=== PATIENT | male | born 1940 | race Caucasian/White ===

== ENCOUNTER 2016-10-25 07:06 | Day surgery (SDC) | payer OTHER ==
[2016-10-24 12:36] VITALS: BMI 31.7
[2016-10-25] MEDS ORDERED: PROPOFOL 20 ML ONE ×3 (08:01)
[2016-10-25] MEDS ORDERED: LIDOCAINE HCL/PF 2% SDV 5ML VIAL ONE (08:01)
[2016-10-25 09:01] VITALS: TEMP 97.6
[2016-10-25 09:19] VITALS: PULSE 49
[2016-10-25 09:59] VITALS: BP 145/53
--- NOTE | 2016-10-26 12:43 | PATH ---
Surgical Pathology Report Patient Name: CHUNG BUTCHER [facility]. Rec. #: [id number] /Age/Gender: 1940 (Age: 76) / M Account: [id number] Location: U-ENDOSCOPY Taken: 10/25/2016 Received: 10/25/2016 Reported: 10/26/2016 Physicians: Thomas Carlson M.D. Specimen(s) Received A: RECTAL POLYP B: SIGMOID COLON POLYP C: BX PROMINENT CECAL FOLD D: PROXIMAL TRANSVERSE COLON POLYP Clinical History History of polyps Colon polyps, diverticulosis Final Diagnosis A. 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 B. COLON, SIGMOID, POLYP, POLYPECTOMY: SPECIMEN DID NOT SURVIVE PROCESSING. C. COLON, PROMINENT CECAL FOLD, BIOPSY: COLONIC MUCOSA WITHREACTIVE LYMPHOID AGGREGATES AND FOCALLY PROMINENT SUBMUCOSAL ADIPOSE TISSUE. D. COLON, PROXIMAL TRANSVERSE, POLYP, POLYPECTOMY: FRAGMENTS OF HYPERPLASTIC-TYPE POLYP WITH FEATURES OF SESSILE SERRATED ADENOMA. Electronically Signed Yogesh Shaw M.D. Gross Description A. Received in formalin, labeled "rectal colon polyp" is a peterson, irregular portion of soft tissue measuring 0.4 cm in greatest dimension. The specimen is submitted in toto in one cassette. B. Received in formalin, labeled "sigmoid colon polyp" are 2 peterson, minute portions of tissue averaging <0.1 cm in greatest dimension. The specimens are submitted in toto in one cassette. The specimen may not survive processing. C. Received in formalin, labeled "biopsy prominent cecal fold" are 6 peterson, irregular portions of soft tissue ranging from 0.1-0.4 cm in greatest dimension. The specimens are submitted in toto in one cassette. D. Received in formalin, labeled "proximal transverse colon polyp" are 3 peterson, irregular portions of soft tissue ranging from 0.1-0.4 cm in greatest dimension. The specimens are submitted in toto in one cassette. 10/25/201610/25/2016
== END 2016-10-25 09:59 | disposition home or self-care (01) ==
LOC: JASU-ENDO 07:06
PROVIDERS: ATTEND Internal Medicine Gastroenterology
PROC: 0DBL8ZX Excision of Transverse Colon, Via Natural or Artificial Opening Endoscopic, Diagnostic (ICD-10-PCS; 2016-10-25)
PROC: 0DBN8ZX Excision of Sigmoid Colon, Via Natural or Artificial Opening Endoscopic, Diagnostic (ICD-10-PCS; 2016-10-25)
PROC: 0DBH8ZX Excision of Cecum, Via Natural or Artificial Opening Endoscopic, Diagnostic (ICD-10-PCS; 2016-10-25)
PROC: 0DBP8ZX Excision of Rectum, Via Natural or Artificial Opening Endoscopic, Diagnostic (ICD-10-PCS; principal; 2016-10-25 08:00)
DX: Z51.11 Encounter for antineoplastic chemotherapy (principal); Z86.010 Personal history of colon polyps; D12.3 Benign neoplasm of transverse colon; D12.5 Benign neoplasm of sigmoid colon; D12.0 Benign neoplasm of cecum; K62.1 Rectal polyp; K57.30 Diverticulosis of large intestine without perforation or abscess without bleeding
CPT/HCPCS: 88305-TC

== ENCOUNTER 2017-02-17 11:58 | Inpatient (IN) | payer OTHER ==
--- NOTE | 2017-02-17 12:31 | PDOC ---
History of Present Illness - General Chief Complaint: Shortness of Breath Stated Complaint: SOB Time Seen by Provider: 02/17/17 12:24 History Source: Patient Exam Limitations: No Limitations - History of Present Illness Initial Comments: 02/17/17 12:33 This is a 76-year-old man with a history of HLD, HTN, CAD (s/p stent x 5), COPD , BPH, hypothyroidism who comes to the ER with a complaint of shortness of breath Pt complaints are two fold: A.) He reports two days of cough, shortness of breath. Yesterday had subjective fevers and chills. No nausea, no vomiting. No ill contacts. No recent travel. No chest pain. No wheezing. (+) sputum production (brown). B) He also notes that it has been several months since he has noticed dizziness with exertion. he estimates that he can go approximately 1 block before he has to stop walking. He denies exertional chest pain. He is s/p recent Holter monitor, results pending to determine if he needs a holter monitor. Denies diaphoresis, nausea, palpitations. PMH: HLD, HTN, CAD (s/p stent x 5), COPD, BPH, hypothyroidism PMD: was [place], pt would like it to be Malik, has changed this on his insurance card School Examiner: Dr. Gómez PSH: rhinoplasty, cyst removal Meds: please see MAR ALL: NKDA Social: Denies tobacco use, denies drug use. Independent, lives with , ambulatory with no assistance - Review of Systems Constitutional: denies: Chills, Diaphoresis, Fever, Lethargy, Loss of Appetite, Malaise, Night Sweats, Unintentional Wgt. Loss, Weakness Eyes: denies: Blurred Vision, Double Vision, Recent Change in Vision HENT: reports: Hearing Loss. denies: Difficult Swallowing, Ear Pain, Epistaxis , Gingival Bleeding, Nasal Congestion, Throat Pain, Ringing in Ears Neck: denies: Decreased ROM, Lumps, Pain on Movement, Stiffness, Swollen Glands Cardiovascular: reports: Chest Pain, Shortness of Breath. denies: Edema, Palpitations Respiratory: reports: Cough, SOB on Exertion. denies: Hemoptysis, Orthopnea, PND, Wheezing Gastrointestinal: denies: Abdominal Pain, Constipation, Diarrhea, Dysphagia, Indigestion, Melena, Nausea, Rectal Bleeding, Vomiting Genitourinary: denies: Burning, Flank Pain, Frequency, Hematuria, Incontinence, Pain, Testicular Pain, Urgency Integumentary: denies: Rash Neurological: reports: Dizziness. denies: Change in LOC, Change in Speech, Confusion, Headache, Numbness, Unsteady Gait Endocrine: denies: Intolerance to Cold, Intolerance to Heat, Unexplained Weight Gain, Unexplained Weight Loss Hematology/Lymphatic: denies: Easily Bruised, Excessive Bleeding, Swollen Glands Psychiatric: denies: Altered Sleep Pattern, Anxiety, Depression Physical Examination GENERAL: The patient is in no acute distress, coughing during examination. HEAD: Normal with no signs of trauma. EYES: PERRLA, EOMI, sclera anicteric, conjunctiva clear. ENT: Ears normal, nares patent, oropharynx clear without exudates. Moist mucous membranes. NECK: Normal range of motion, supple without lymphadenopathy, JVD, or masses. LUNGS: Breath sounds equal, clear to auscultation bilaterally. No wheezes HEART: Regular rate and rhythm, normal S1 and S2 without murmur, rub or gallop. ABDOMEN: Soft, nontender, normoactive bowel sounds. No guarding, no rebound. No masses palpable. EXTREMITIES: Normal range of motion, no edema. No clubbing or cyanosis. No erythema, or tenderness. NEUROLOGICAL: Cranial nerves II through XII grossly intact. Normal speech. No focal neurological deficits. MUSCULOSKELETAL: Back non-tender to palpation, no CVA tenderness SKIN: Warm, Dry, normal turgor, no rashes or lesions noted. Past History - Past Medical History Allergies/Adverse Reactions: Allergies Allergy/AdvReac Type Severity Reaction Status Date / Time No Known Drug Allergies Allergy Verified 02/17/17 12:04 Home Medications: Ambulatory Orders RX: Ascorbic Acid [Vitamin C] 500 mg PO DAILY 12/25/12 RX: Aspirin Coated [Ecotrin -] 81 mg PO HS 12/25/12 RX: Atorvastatin Calcium [Lipitor] 20 mg PO HS 12/25/12 RX: Levothyroxine [Synthroid -] 200 mcg PO DAILY@0700 #30 tablet 07/11/15 Mag Carb/Al Hydrox/Alginic AC [Gaviscon Liquid] 30 ml PO PRN PRN #0 oral.susp RX: Pantoprazole Sodium 40 mg PO HS #0 tablet. 05/03/16 Multivit-Min/FA/Lycopen/Lutein [Centrum Silver Men Tablet] 1 each PO DAILY 10/24 Anemia: No Asthma: No Cancer: No Cardiac Disorders: Yes (ASHD) CVA: No COPD: Yes CHF: No Dementia: No Diabetes: No GI Disorders: Yes (GERD W/ SCHATZKI RING,, COLON POLYPS,DIVERTICULOSIS) Disorders: Yes (BPH) HTN: No Hypercholesterolemia: Yes (HYPERLIPIDEMIA) Kidney Stones: Yes Liver Disease: No Seizures: No Thyroid Disease: Yes (HYPOTHYROID) - Surgical History Abdominal Surgery: No Appendectomy: No Cardiac Surgery: No Cholecystectomy: No Lung Surgery: Yes (UPPER LUNG BIOPSY) Neurologic Surgery: No Orthopedic Surgery: No - Immunization History Immunization Up to Date: Yes - Suicide/Smoking/Psychosocial Hx Smoking History: Former smoker Have you smoked in the past 12 months: No If you are a former smoker, when did you quit?: 40 YRS Information on smoking cessation initiated: No Hx Alcohol Use: Yes (SOCIAL) Drug/Substance Use Hx: No Substance Use Type: None Hx Substance Use Treatment: No *Physical Exam - Vital Signs Last Vital Signs Temp Pulse Resp BP Pulse Ox 100.0 F H 70 20 120/56 96 02/17/17 12:00 02/17/17 12:00 02/17/17 12:00 02/17/17 12:00 02/17/17 12:00 Heart Score/ECG Review #1 ECG reviewed & interpreted by me at: 13:32 General ECG Interpretation: Sinus Rhythm, Normal Rate, Normal Intervals, No acute ischemic changes ED Treatment Course - LABORATORY CBC & Chemistry Diagram: 02/17/17 13:00 02/17/17 13:00 Medical Decision Making - Medical Decision Making 02/17/17 12:52 Differential Diagnosis: ACS, Pneumonia, Bronchitis, CHF, COPD exacerbation Will do labs Will do x ray Will re assess No wheezing, will hold on steroids and nebs 02/17/17 13:31 X-ray demonstrates congestive changes, bibasilar patchy infiltrates. In the setting of low-grade fever, cough, sputum change will treat for pneumonia. Awaiting labs. Will admit to Dr. Malik vieira 02/17/17 14:05 Laboratory Tests 02/17/17 02/17/17 02/17/17 13:00 13:00 13:05 WBC 12.9 H D Hgb 12.6 Hct 39.2 Plt Count 253 D Neutrophils % 81.6 D Lymphocytes % 6.3 L D VBG pH 7.40 POC VBG pCO2 43.1 POC VBG pO2 28.1 Mixed VBG HCO3 26.3 H BUN 12 Creatinine 1.0 D Creatine Kinase 39 Troponin I < 0.02 *DC/Admit/Observation/Transfer Diagnosis at time of Disposition: Dyspnea on exertion Pneumonia Qualifiers: Pneumonia type: due to unspecified organism Laterality: bilateral Lung location : lower lobe of lung Qualified Code(s): J18.9 - Pneumonia, unspecified organism - Discharge Dispostion Condition at time of disposition: Stable Admit: Yes
[2017-02-17 13:11] LABS: VENOUS BLOOD GAS HCO3 26.3 meq/L (19-25); VENOUS PH 7.4 (7.32-7.42)
[2017-02-17 13:14] LABS: BASOPHIL 0.2 % (0-2.0); MCH 29.5 pg (25.7-33.7); MCHC 32.2 g/dl (32.0-35.9); MEAN CELL VOLUME 91.4 fl (80-96); MEAN PLT VOLUME 6.8 fl (7.5-11.1); NEUTROPHILS 81.6 % (42.8-82.8); PLATELET COUNT 253 K/MM3 (134-434); RDW 14.5 % (11.9-15.9); WHITE BLOOD COUNT 12.9 K/mm3 (4.0-10.0)
[2017-02-17 13:40] LABS: ALBUMIN 3.1 g/dl (3.4-5.0); ANION GAP 7 (8-16); CALCIUM 8.2 mg/dL (8.5-10.1); CO2 28 mmol/L (21-32); GLUCOSE,RANDOM 136 mg/dL (74-106); SGOT/AST 17 U/L (15-37); SGPT/ALT 27 U/L (12-78); TOT PROT 6.2 g/dl (6.4-8.2)
[2017-02-17 13:42] LABS: ALK PHOS 106 U/L (45-117); CPK 39 IU/L (39-308); TROPONIN I < 0.02 ng/ml (0.00-0.05)
[2017-02-17 13:55] LABS: URINE APPEARANCE CLEAR; URINE BILIRUBIN NEGATIVE (NEGATIVE); URINE BLOOD NEGATIVE (NEGATIVE); URINE COLOR AMBER; URINE GLUCOSE (UA) NEGATIVE (NEGATIVE); URINE KETONE NEGATIVE (NEGATIVE); URINE LEUK ESTERASE NEGATIVE (NEGATIVE); URINE NITRITE NEGATIVE (NEGATIVE); URINE PROTEIN NEGATIVE (NEGATIVE); URINE UROBILINOGEN 4.0 E.U/dl mg/dL (0.2-1.0)
[2017-02-17 13:59] LABS: INR 1.48 (0.82-1.09); PROTHROMBIN TIME (PATIENT) 16.4 SEC (9.98-11.88)
[2017-02-17 14:01] LABS: ACTIVATED PTT 29.3 SECONDS (26.9-34.4)
[2017-02-17] MEDS ORDERED: CEFTRIAXONE 1 GM in DEXTROSE 5%-WATER - 50 ML IVPB ONE (14:05)
[2017-02-17] MEDS ORDERED: AZITHROMYCIN IVPB 500 MG in DEXTROSE 5%-WATER - 250 ML IVPB ONE (14:08)
[2017-02-17] MEDS ORDERED: AZITHROMYCIN IVPB 250 ML IVPB ONE (15:33)
[2017-02-17] MEDS ORDERED: CEFTRIAXONE 50 ML ONE (15:33)
[2017-02-17 16:34] LABS: CPK 43 IU/L (39-308); TROPONIN I < 0.02 ng/ml (0.00-0.05)
[2017-02-17] MEDS: D5-1/2NS+20 MEQ KCL - 1,000 ML IV SCH (20:48)
[2017-02-17 21:29] VITALS: BMI 30.6
[2017-02-17] MEDS: ASPIRIN COATED 81 MG TABLET.EC PO SCH (22:13)
[2017-02-17] MEDS: HEPARIN NA (PORCINE) 5,000 UNITS/ML 1ML VIAL SQ SCH (22:13)
[2017-02-17] MEDS: ATORVASTATIN CA 20 MG TABLET (FP) PO SCH (22:13)
[2017-02-17] MEDS: PANTOPRAZOLE 40 MG TABLET (FP) PO SCH (22:13)
[2017-02-18] MEDS: LEVOTHYROXINE NA 200 MCG TABLET PO SCH (06:48)
[2017-02-18 07:22] LABS: BASOPHIL 0.8 % (0-2.0); EOSINOPHIL 8.5 % (0-4.5); MCH 29.8 pg (25.7-33.7); MCHC 32.9 g/dl (32.0-35.9); MEAN CELL VOLUME 90.4 fl (80-96); MEAN PLT VOLUME 7.5 fl (7.5-11.1); NEUTROPHILS 71.7 % (42.8-82.8); PLATELET COUNT 229 K/MM3 (134-434); RDW 14.7 % (11.9-15.9); WHITE BLOOD COUNT 12.7 K/mm3 (4.0-10.0)
[2017-02-18] MEDS ORDERED: PT OWN MED DRAWER 7, Y5N ONE ×3 (07:32→21:28)
[2017-02-18 07:49] LABS: ALBUMIN 2.7 g/dl (3.4-5.0); ANION GAP 6 (8-16); CALCIUM 7.9 mg/dL (8.5-10.1); CO2 27 mmol/L (21-32); GLUCOSE,RANDOM 108 mg/dL (74-106)
[2017-02-18 07:55] LABS: ALK PHOS 94 U/L (45-117); CHOLESTEROL 106 mg/dL (50-200); CPK 53 IU/L (39-308); CREATININE 0.8 mg/dL (0.7-1.3); SGOT/AST 13 U/L (15-37); SGPT/ALT 22 U/L (12-78); TOT PROT 5.7 g/dl (6.4-8.2); TROPONIN I < 0.02 ng/ml (0.00-0.05)
--- NOTE | 2017-02-18 08:40 | EKG ---
Test Reason : Blood Pressure : / mmHG Vent. Rate : 065 BPM Atrial Rate : 065 BPM P-R Int : 182 ms QRS Dur : 092 ms QT Int : 388 ms P-R-T Axes : -09 029 046 degrees QTc Int : 403 ms NORMAL SINUS RHYTHM NORMAL ECG Confirmed by MD PRASHANTH, GRACIA ([id number]) on 02/18/2017 8:39:57 AM Referred By: Confirmed By:GRACIA ALFORD MD
[2017-02-18] MEDS ORDERED: cefTRIAXone SODIUM 1 GM VIAL ONE ×2 (09:47→16:47)
[2017-02-18] MEDS ORDERED: DEXTROSE 5%-WATER - 50 ML IVPB ONE (09:47)
[2017-02-18] MEDS: HEPARIN NA (PORCINE) 5,000 UNITS/ML 1ML VIAL SQ SCH ×2 (09:53→21:39)
[2017-02-18] MEDS: ACETAMINOPHEN 325 MG TABLET (FP) PO PRN ×2 (09:54→21:38)
[2017-02-18] MEDS ORDERED: FLU VACCINE QUAD 60 MCG/0.5 ML (MDV 17-18) IM ONE (10:00)
[2017-02-18] MEDS ORDERED: CEFTRIAXONE 1 GM in DEXTROSE 5%-WATER - 50 ML IVPB SCH (10:00)
--- NOTE | 2017-02-18 10:47 | HP ---
Admitting History and Physical - Admission History of Present Illness: This is a 76-year-old man with a history of HLD, HTN, CAD (s/p stent x 5), COPD , BPH, hypothyroidism who comes to the ER with a complaint of shortness of breath Pt complaints are two fold: A.) He reports two days of cough, shortness of breath. Yesterday had subjective fevers and chills. No nausea, no vomiting. No ill contacts. No recent travel. No chest pain. No wheezing. (+) sputum production (brown). B) He also notes that it has been several months since he has noticed dizziness with exertion. he estimates that he can go approximately 1 block before he has to stop walking. He denies exertional chest pain. He is s/p recent Holter monitor, results pending to determine if he needs a holter monitor. Denies diaphoresis, nausea, palpitations. - Past Medical History Cardiovascular: Yes: CAD, HTN, Hyperlipdemia Pulmonary: Yes: Sleep Apnea Gastrointestinal: Yes: GERD Renal/: Yes: BPH Endocrine: Yes: Hypothyroidism - Past Surgical History Past Surgical History: Yes: Stent - Smoking History Smoking history: Former smoker Have you smoked in the past 12 months: No If you are a former smoker, when did you quit?: 40 YRS - Alcohol/Substance Use Hx Alcohol Use: Yes (SOCIAL) History of Substance Use: reports: None - Social History ADL: Independent History of Recent Travel: Yes Home Medications - Allergies Allergies/Adverse Reactions: Allergies Allergy/AdvReac Type Severity Reaction Status Date / Time No Known Drug Allergies Allergy Verified 02/17/17 12:04 - Home Medications Home Medications: Ambulatory Orders Ascorbic Acid [Vitamin C] 500 mg PO DAILY 12/25/12 Aspirin Coated [Ecotrin -] 81 mg PO HS 12/25/12 Atorvastatin Calcium [Lipitor] 20 mg PO HS 12/25/12 Levothyroxine [Synthroid -] 200 mcg PO DAILY@0700 #30 tablet 07/11/15 Mag Carb/Al Hydrox/Alginic AC [Gaviscon Liquid] 30 ml PO PRN PRN #0 oral.susp Pantoprazole Sodium 40 mg PO HS #0 tablet. 05/03/16 Multivit-Min/FA/Lycopen/Lutein [Centrum Silver Men Tablet] 1 each PO DAILY 10/24 Review of Systems - Review of Systems Constitutional: reports: Weakness Cardiovascular: reports: Shortness of Breath, Other (RT AXILLARY PAIN). denies : Chest Pain, Edema, Palpitations Respiratory: reports: Cough, SOB, SOB on Exertion Gastrointestinal: denies: Abdominal Pain Genitourinary: reports: No Symptoms Physical Examination Vital Signs: Vital Signs Temperature 99.3 F 02/18/17 06:00 Pulse Rate 89 02/18/17 06:00 Respiratory Rate 20 02/18/17 06:00 Blood Pressure 117/51 02/18/17 06:00 O2 Sat by Pulse Oximetry (%) 92 L 02/17/17 20:30 Cardiovascular: Yes: S1, S2 Respiratory: Yes: Diminished, Rales Gastrointestinal: Yes: Normal Bowel Sounds, Soft. No: Tenderness Edema: No Labs: CBC, BMP 02/18/17 06:00 02/18/17 06:00 Imaging - Results Cat Scan: Report Reviewed Problem List - Problems (1) Pneumonia Assessment/Plan: NEW FINDING ON CT PULM AND ID CONSULT IV ABX NEBS Code(s): J18.9 - PNEUMONIA, UNSPECIFIED ORGANISM Qualifiers: Pneumonia type: due to unspecified organism Laterality: bilateral Lung location: lower lobe of lung Qualified Code(s): J18.9 - Pneumonia, unspecified organism (2) CAD (coronary artery disease) Assessment/Plan: EKG NO CP MONITOR ON TELE Code(s): I25.10 - ATHSCL HEART DISEASE OF [place] CORONARY ARTERY W/O ANG PCTRS (3) COPD (chronic obstructive pulmonary disease) Assessment/Plan: NEBS Code(s): J44.9 - CHRONIC OBSTRUCTIVE PULMONARY DISEASE, UNSPECIFIED (4) Pulmonary nodule Assessment/Plan: MONITOR PER PULM Code(s): R91.1 - SOLITARY PULMONARY NODULE
[2017-02-18] MEDS: ALBUTEROL SO4 2.5/IPRATROPIUM 0.5 INH SOL 3 ML VIAL.NEB. NEB SCH ×3 (11:07→23:18)
--- NOTE | 2017-02-18 12:18 | CON.PULM ---
Consult Consult Specialty:: PULMONARY Referred by:: Dr. Aviles Reason for Consultation:: pneumonia - History of Present Illness Chief Complaint: cough History of Present Illness: 76yo male with h/o HTN, hyperlipidemia, COPD, BPH, hypothyroidism, CAD s/p stents, former smoker who presents with worsening cough and shortness of breath x 2 days. He denies any chest pain or palpitations. + cough mostly nonproductive but sometimes with brown sputum. Reports subjective fevers, chills. No sick contacts or recent travel. No wheezing. Has not been hospitalized or on antibiotics this year. Being followed as outpt for lung nodule with PET reportedly negative. - History Source History Provided By: Patient, Medical Record Limitations to Obtaining History: No Limitations - Past Medical History Cardio/Vascular: Yes: CAD, HTN, Hyperlipdemia Pulmonary: Yes: Sleep Apnea Gastrointestinal: Yes: GERD Renal/: Yes: BPH Endocrine: Yes: Hypothyroidism - Past Surgical History Past Surgical History: Yes: Stent - Alcohol/Substance Use Hx Alcohol Use: Yes (SOCIAL) History of Substance Use: reports: None - Smoking History Smoking history: Former smoker Have you smoked in the past 12 months: No If you are a former smoker, when did you quit?: 40 YRS - Social History ADL: Independent History of Recent Travel: Yes Home Medications - Allergies Allergies/Adverse Reactions: Allergies Allergy/AdvReac Type Severity Reaction Status Date / Time No Known Drug Allergies Allergy Verified 02/17/17 12:04 - Home Medications Home Medications: Ambulatory Orders Ascorbic Acid [Vitamin C] 500 mg PO DAILY 12/25/12 Aspirin Coated [Ecotrin -] 81 mg PO HS 12/25/12 Atorvastatin Calcium [Lipitor] 20 mg PO HS 12/25/12 Levothyroxine [Synthroid -] 200 mcg PO DAILY@0700 #30 tablet 07/11/15 Mag Carb/Al Hydrox/Alginic AC [Gaviscon Liquid] 30 ml PO PRN PRN #0 oral.susp Pantoprazole Sodium 40 mg PO HS #0 tablet. 05/03/16 Multivit-Min/FA/Lycopen/Lutein [Centrum Silver Men Tablet] 1 each PO DAILY 10/24 Review of Systems - Review of Systems Constitutional: reports: Chills, Fever, Weakness Eyes: denies: Recent Change in Vision HENT: denies: Nasal Congestion, Throat Pain Neck: denies: Stiffness, Tenderness Cardiovascular: reports: Shortness of Breath. denies: Chest Pain, Palpitations Respiratory: reports: Cough, Exercise Intolerance, SOB, SOB on Exertion. denies : Hemoptysis, Wheezing Gastrointestinal: denies: Abdominal Pain, Nausea, Vomiting Genitourinary: denies: Dysuria, Hematuria Neurological: denies: Dizziness, Headache Endocrine: denies: Unexplained Weight Loss Physical Exam Vital Sings: Vital Signs Temperature 98.8 F 02/18/17 10:00 Pulse Rate 57 L 02/18/17 10:00 Respiratory Rate 20 02/18/17 10:00 Blood Pressure 95/52 02/18/17 10:00 O2 Sat by Pulse Oximetry (%) 92 L 02/17/17 20:30 Constitutional: Yes: Calm Eyes: Yes: Conjunctiva Clear, EOM Intact HENT: Yes: Atraumatic, Normocephalic, Tonsillar Exudate Neck: Yes: Trachea Midline Cardiovascular: Yes: Regular Rate and Rhythm Respiratory: Yes: Diminished (decreased breath sounds at the bases) ...Clubbing: No Gastrointestinal: Yes: Normal Bowel Sounds, Soft. No: Tenderness Edema: No Neurological: Yes: Alert, Oriented Labs: CBC, BMP 02/18/17 06:00 02/18/17 06:00 Imaging - Results Chest X-ray: Report Reviewed, Image Reviewed Cat Scan: Report Reviewed, Image Reviewed (RUL focal infiltrate) Problem List - Problems (1) Pneumonia Code(s): J18.9 - PNEUMONIA, UNSPECIFIED ORGANISM Qualifiers: Pneumonia type: due to unspecified organism Laterality: bilateral Lung location: lower lobe of lung Qualified Code(s): J18.9 - Pneumonia, unspecified organism (2) COPD (chronic obstructive pulmonary disease) Code(s): J44.9 - CHRONIC OBSTRUCTIVE PULMONARY DISEASE, UNSPECIFIED (3) CAD (coronary artery disease) Code(s): I25.10 - ATHSCL HEART DISEASE OF [place] CORONARY ARTERY W/O ANG PCTRS (4) BPH (benign prostatic hypertrophy) Code(s): N40.0 - BENIGN PROSTATIC HYPERPLASIA WITHOUT LOWER URINRY TRACT SYMP Qualifiers: Lower urinary tract symptom presence: symptoms absent Qualified Code(s) : N40.0 - Benign prostatic hyperplasia without lower urinary tract symptoms (5) Hyperlipidemia Code(s): E78.5 - HYPERLIPIDEMIA, UNSPECIFIED Qualifiers: Hyperlipidemia type: unspecified Qualified Code(s): E78.5 - Hyperlipidemia, unspecified (6) Hypothyroidism Code(s): E03.9 - HYPOTHYROIDISM, UNSPECIFIED Qualifiers: Hypothyroidism type: unspecified Qualified Code(s): E03.9 - Hypothyroidism, unspecified Assessment/Plan Pneumonia COPD HTN CAD s/p stents Hypothyroidism Hyperlipidemia - agree with antibiotic coverage for community acquired pneumonia - f/u cultures - send urine antigens - inhaled bronchodilators - takes Breo at home, can give Symbicort while inpatient - can defer systemic steroids at this time - O2 to keep SpO2>90% - will need outpt f/u of chest imaging in 6-8 weeks to ensure resolution of focal infiltrate, mass like infiltrate not seen on CT chest in August 2016 - DVT prophylaxis Thank you for this consult Robert Currie MD
[2017-02-18] MEDS: BUDESONIDE/FORMETEROL FUMARATE 160/4.5 mcg INHALER IH SCH ×2 (15:58→21:45)
[2017-02-18] MEDS ORDERED: CEFTRIAXONE 1 GM in DEXTROSE 5%-WATER 100 ML IVPB ONE (16:08)
--- NOTE | 2017-02-18 16:13 | PN ---
Progress Note (short form) - Note Progress Note: ID Consult dictated Mass-like RUL infiltrate High grade fever Await cultures Empiric ceftriaxone/ zithromax
[2017-02-18] MEDS ORDERED: AZITHROMYCIN IVPB 500 MG in DEXTROSE 5%-WATER - 250 ML IVPB SCH ×2 (16:15→18:25)
[2017-02-18] MEDS ORDERED: DEXTROSE 5%-WATER 100 ML IVPB ONE (16:47)
[2017-02-18] MEDS ORDERED: AZITHROMYCIN IVPB 250 ML IVPB SCH (16:58)
--- NOTE | 2017-02-18 17:01 | CONS ---
DATE OF CONSULTATION: DATE OF DICTATION: 02/18/2017 The patient is a 76-year-old male evaluated for right upper lobe pneumonia. He presented to the hospital with worsening shortness of breath, cough, subjective fever and chills. The patient's CAT scan of the chest was noted to have a mass-like infiltrate involving the right upper lobe. He reports occasional cough productive of whitish sputum. He denies any hemoptysis. He denies chest pain or shortness of breath. He denies any ill contacts or recent travel. The patient is a former smoker, stopping approximately 40 years ago. Cultures were obtained. He was empirically treated with Zithromax and ceftriaxone. Past medical history positive for hypertension, hyperlipidemia, coronary artery disease, COPD, BPH, hypothyroidism. PAST SURGICAL HISTORY: Status post coronary artery stent and rhinoplasty. No known allergies. MEDICATIONS: Vitamin C, Ecotrin, Lipitor, Synthroid, Protonix. SOCIAL HISTORY: Former smoker, stopped 40 years ago. Lives at home with his . No recent hospitalizations. Denies history of alcohol abuse. SYSTEMS REVIEW: Neurologic: No loss of consciousness, seizure activity, or focal weakness. Cardiac: Negative chest pain or palpitations. Respiratory: As per HPI. Gastrointestinal: Negative vomiting or diarrhea. Genitourinary: Negative for urinary tract infection. LABORATORY DATA: White count 12.7, hematocrit 35.9, platelet count 229. BUN 12, creatinine 0.8. CAT scan shows a dense right upper lobe infiltrate, mass-like quality, with evidence of chronic lung disease bilaterally. PHYSICAL EXAMINATION: General: He is awake and alert, he is ambulatory, he is in no acute distress. Vital Signs: Temperature 98. Blood pressure 110/67. Pulse 53, regular. Respirations 20 per minute. Eyes: Sclerae anicteric. Heart Sounds: S1, S2. Lungs: Decreased breath sounds bilaterally. Abdomen: Soft. No tenderness elicited. No mass, rebound or rigidity. Extremities: Negative for edema. IMPRESSION: 1. Mass-like right upper lobe infiltrate. 2. High-grade fever. 3. Exacerbation of chronic obstructive pulmonary disease. Await cultures. Obtain sputum culture, urine Legionella, and pneumococcal antigen. Empiric antibiotic coverage for suspected community-acquired pathogens with Zithromax and ceftriaxone. May require bronchoscopy to rule out endobronchial lesion. Will follow. Thank you for the kind referral. PATRICIA TRINIDAD M.D. OLIVIA/[id number]
[2017-02-18] MEDS: D5-1/2NS+20 MEQ KCL - 1,000 ML IV SCH (18:59)
[2017-02-18] MEDS: ATORVASTATIN CA 20 MG TABLET (FP) PO SCH (21:39)
[2017-02-18] MEDS: ASPIRIN COATED 81 MG TABLET.EC PO SCH (21:39)
[2017-02-18] MEDS: PANTOPRAZOLE 40 MG TABLET (FP) PO SCH (21:39)
[2017-02-19] MEDS ORDERED: PT OWN MED DRAWER 7, Y5N ONE ×3 (05:55→11:09)
[2017-02-19] MEDS: D5-1/2NS+20 MEQ KCL - 1,000 ML IV SCH (06:15)
[2017-02-19] MEDS: LEVOTHYROXINE NA 200 MCG TABLET PO SCH (06:15)
[2017-02-19] MEDS: ALBUTEROL SO4 2.5/IPRATROPIUM 0.5 INH SOL 3 ML VIAL.NEB. NEB SCH ×4 (06:30→23:23)
--- NOTE | 2017-02-19 08:43 | PN ---
Progress Note (short form) - Note Progress Note: feels much better still some cough with right sided pain but improved Vital Signs Period Temp Pulse Resp BP Sys/Sheldon Pulse Ox Last 24 Hr 97.4 F-98.8 F 53-67 20-20 95-135/51-72 92-93 cor-rrr lungs clear abd soft,nt ext no edema CBC, BMP 02/18/17 06:00 02/18/17 06:00 Microbiology 02/18/17 13:30 Urine For Antigen Detection Legionella Antigen - Final 02/18/17 13:30 Urine For Antigen Detection Streptococcus pneumoniae Antigen (M - Final 02/17/17 13:20 Blood - Peripheral Venous Blood Culture - Preliminary NO GROWTH OBTAINED AFTER 24 HOURS, INCUBATION TO CONTINUE FOR 4 DAYS. 02/17/17 13:00 Blood - Peripheral Venous Blood Culture - Preliminary NO GROWTH OBTAINED AFTER 24 HOURS, INCUBATION TO CONTINUE FOR 4 DAYS. 02/17/17 12:40 Urine - Urine Clean Catch Urine Culture - Final NO GROWTH OBTAINED Current Medications Acetaminophen (Tylenol -) 650 mg PO Q4H PRN PRN Reason: FEVER OR PAIN Last Admin: 02/18/17 21:38 Dose: 650 mg Albuterol/Ipratropium (Duoneb -) 1 amp NEB QIDR [facility] Last Admin: 02/19/17 06:30 Dose: 1 amp Aspirin (Ecotrin -) 81 mg PO HS [facility] Last Admin: 02/18/17 21:39 Dose: 81 mg Atorvastatin Calcium (Lipitor -) 20 mg PO HS [facility] Last Admin: 02/18/17 21:39 Dose: 20 mg Budesonide/Formoterol Fumarate (Symbicort 160/4.5mcg -) 2 puff IH BID [facility] Last Admin: 02/18/17 21:45 Dose: 2 puff Heparin Sodium (Porcine) (Heparin -) 5,000 unit SQ BID JAYJAY Last Admin: 02/18/17 21:39 Dose: 5,000 unit Potassium Chloride/Dextrose/Sod Cl (D5-1/2ns+20 Meq Kcl -) 1,000 mls @ 42 mls/ hr IV ASDIR [facility] Last Admin: 02/19/17 06:15 Dose: 42 mls/hr Ceftriaxone Sodium 2 gm/ (Dextrose) 100 mls @ 200 mls/hr IVPB DAILY [facility] Azithromycin 500 mg/ Dextrose 250 mls @ 250 mls/hr IVPB DAILY JAYJAY Levothyroxine Sodium (Synthroid -) 200 mcg PO DAILY@0700 JAYJAY Last Admin: 02/19/17 06:15 Dose: 200 mcg Pantoprazole Sodium (Protonix -) 40 mg PO HS JAYJAY Last Admin: 02/18/17 21:39 Dose: 40 mg a/p CAP- right lung, fevers resolved day #3 rocephin/zithromax consider change to po augmentin when ready for discharge to complete total 10 days add probiotics COPD- management per pulmonary
[2017-02-19] MEDS ORDERED: DEXTROSE 5%-WATER 100 ML IVPB ONE (09:40)
[2017-02-19] MEDS ORDERED: CEFTRIAXONE 2 GM in DEXTROSE 5%-WATER 100 ML IVPB SCH (10:00)
--- NOTE | 2017-02-19 10:39 | PN ---
Progress Note, Physician History of Present Illness: PULMONARY ALERT,FEELING BETTER,LESS DYSPNEIC,LESS COUGH - Current Medication List Current Medications: Active Medications Acetaminophen (Tylenol -) 650 mg PO Q4H PRN PRN Reason: FEVER OR PAIN Last Admin: 02/18/17 21:38 Dose: 650 mg Albuterol/Ipratropium (Duoneb -) 1 amp NEB QIDR [facility] Last Admin: 02/19/17 06:30 Dose: 1 amp Aspirin (Ecotrin -) 81 mg PO [facility] Last Admin: 02/18/17 21:39 Dose: 81 mg Atorvastatin Calcium (Lipitor -) 20 mg PO [facility] Last Admin: 02/18/17 21:39 Dose: 20 mg Budesonide/Formoterol Fumarate (Symbicort 160/4.5mcg -) 2 puff IH BID [facility] Last Admin: 02/18/17 21:45 Dose: 2 puff Heparin Sodium (Porcine) (Heparin -) 5,000 unit SQ BID [facility] Last Admin: 02/18/17 21:39 Dose: 5,000 unit Potassium Chloride/Dextrose/Sod Cl (D5-1/2ns+20 Meq Kcl -) 1,000 mls @ 42 mls/ hr IV ASDIR [facility] Last Admin: 02/19/17 06:15 Dose: 42 mls/hr Ceftriaxone Sodium 2 gm/ (Dextrose) 100 mls @ 200 mls/hr IVPB DAILY [facility] Azithromycin 500 mg/ Dextrose 250 mls @ 250 mls/hr IVPB DAILY [facility] Lactobacillus Acidophilus (Bacid -) 1 tab PO BID [facility] Levothyroxine Sodium (Synthroid -) 200 mcg PO DAILY@0700 [facility] Last Admin: 02/19/17 06:15 Dose: 200 mcg Pantoprazole Sodium (Protonix -) 40 mg PO [facility] Last Admin: 02/18/17 21:39 Dose: 40 mg - Objective Vital Signs: Vital Signs Temperature 98.2 F 02/19/17 06:05 Pulse Rate 63 02/19/17 06:05 Respiratory Rate 20 02/19/17 06:05 Blood Pressure 135/72 02/19/17 06:05 O2 Sat by Pulse Oximetry (%) 92 L 02/18/17 21:00 Constitutional: Yes: Well Nourished, Calm Eyes: Yes: WNL HENT: Yes: WNL Neck: Yes: WNL Cardiovascular: Yes: Regular Rate and Rhythm, S1, S2 Respiratory: Yes: Rales (FEW CRACKLES) Gastrointestinal: Yes: Normal Bowel Sounds, Soft Extremities: Yes: WNL Edema: No Labs: Assessment/Plan Problem List - Problems (1) Pneumonia Code(s): J18.9 - PNEUMONIA, UNSPECIFIED ORGANISM Qualifiers: Pneumonia type: due to unspecified organism Laterality: bilateral Lung location: lower lobe of lung Qualified Code(s): J18.9 - Pneumonia, unspecified organism (2) COPD (chronic obstructive pulmonary disease) Code(s): J44.9 - CHRONIC OBSTRUCTIVE PULMONARY DISEASE, UNSPECIFIED (3) CAD (coronary artery disease) Code(s): I25.10 - ATHSCL HEART DISEASE OF [place] CORONARY ARTERY W/O ANG PCTRS (4) BPH (benign prostatic hypertrophy) Code(s): N40.0 - BENIGN PROSTATIC HYPERPLASIA WITHOUT LOWER URINRY TRACT SYMP Qualifiers: Lower urinary tract symptom presence: symptoms absent Qualified Code(s) : N40.0 - Benign prostatic hyperplasia without lower urinary tract symptoms (5) Hyperlipidemia Code(s): E78.5 - HYPERLIPIDEMIA, UNSPECIFIED Qualifiers: Hyperlipidemia type: unspecified Qualified Code(s): E78.5 - Hyperlipidemia, unspecified (6) Hypothyroidism Code(s): E03.9 - HYPOTHYROIDISM, UNSPECIFIED Qualifiers: Hypothyroidism type: unspecified Qualified Code(s): E03.9 - Hypothyroidism, unspecified Assessment/Plan Pneumonia COPD HTN CAD s/p stents Hypothyroidism Hyperlipidemia - antibiotic coverage for community acquired pneumonia - inhaled bronchodilators - takes Breo at home, can give Symbicort while inpatient - can defer systemic steroids at this time - O2 to keep SpO2>90% - will need outpt f/u of chest imaging in 6-8 weeks to ensure resolution of focal infiltrate, mass like infiltrate not seen on CT chest in August 2016 - DVT prophylaxis DR HENRY
[2017-02-19] MEDS: HEPARIN NA (PORCINE) 5,000 UNITS/ML 1ML VIAL SQ SCH ×2 (11:10→21:45)
[2017-02-19] MEDS: BUDESONIDE/FORMETEROL FUMARATE 160/4.5 mcg INHALER IH SCH ×2 (11:11→21:46)
[2017-02-19] MEDS: LACTOBACILLUS ACIDOPHILUS 1 EACH TAB (FP) PO SCH ×2 (11:11→21:45)
--- NOTE | 2017-02-19 11:24 | EKG ---
Test Reason : Blood Pressure : / mmHG Vent. Rate : 055 BPM Atrial Rate : 055 BPM P-R Int : 206 ms QRS Dur : 102 ms QT Int : 432 ms P-R-T Axes : 012 044 021 degrees QTc Int : 413 ms SINUS BRADYCARDIA OTHERWISE NORMAL ECG WHEN COMPARED WITH ECG OF 17-FEB-2017 13:23, NO SIGNIFICANT CHANGE WAS FOUND Confirmed by LOS VERGARA MD ([id number]) on 02/19/2017 11:24:00 AM Referred By: EULA HUANG Confirmed By:LOS VERGARA MD
--- NOTE | 2017-02-19 16:36 | PN ---
Progress Note, Physician Chief Complaint: AWAKE WITH FAMILY BEDSIDE FEELING BETTER - Current Medication List Current Medications: Active Medications Acetaminophen (Tylenol -) 650 mg PO Q4H PRN PRN Reason: FEVER OR PAIN Last Admin: 02/18/17 21:38 Dose: 650 mg Albuterol/Ipratropium (Duoneb -) 1 amp NEB QIDR [facility] Last Admin: 02/19/17 11:07 Dose: 1 amp Aspirin (Ecotrin -) 81 mg PO HS [facility] Last Admin: 02/18/17 21:39 Dose: 81 mg Atorvastatin Calcium (Lipitor -) 20 mg PO HS [facility] Last Admin: 02/18/17 21:39 Dose: 20 mg Budesonide/Formoterol Fumarate (Symbicort 160/4.5mcg -) 2 puff IH BID [facility] Last Admin: 02/19/17 11:11 Dose: 2 puff Heparin Sodium (Porcine) (Heparin -) 5,000 unit SQ BID [facility] Last Admin: 02/19/17 11:10 Dose: 5,000 unit Potassium Chloride/Dextrose/Sod Cl (D5-1/2ns+20 Meq Kcl -) 1,000 mls @ 42 mls/ hr IV ASDIR [facility] Last Admin: 02/19/17 06:15 Dose: 42 mls/hr Ceftriaxone Sodium 2 gm/ (Dextrose) 100 mls @ 200 mls/hr IVPB DAILY [facility] Last Admin: 02/19/17 11:11 Dose: 200 mls/hr Azithromycin 500 mg/ Dextrose 250 mls @ 250 mls/hr IVPB DAILY [facility] Last Admin: 02/19/17 14:25 Dose: 250 mls/hr Lactobacillus Acidophilus (Bacid -) 1 tab PO BID [facility] Last Admin: 02/19/17 11:11 Dose: 1 tab Levothyroxine Sodium (Synthroid -) 200 mcg PO DAILY@0700 [facility] Last Admin: 02/19/17 06:15 Dose: 200 mcg Pantoprazole Sodium (Protonix -) 40 mg PO HS [facility] Last Admin: 02/18/17 21:39 Dose: 40 mg - Objective Vital Signs: Vital Signs Temperature 97.7 F 02/19/17 14:05 Pulse Rate 62 02/19/17 14:05 Respiratory Rate 20 02/19/17 14:05 Blood Pressure 146/66 02/19/17 14:05 O2 Sat by Pulse Oximetry (%) 94 L 02/19/17 10:25 Constitutional: Yes: No Distress Eyes: Yes: WNL HENT: Yes: WNL Neck: Yes: WNL Cardiovascular: Yes: WNL Respiratory: Yes: WNL Gastrointestinal: Yes: WNL Genitourinary: Yes: WNL Musculoskeletal: Yes: WNL Extremities: Yes: WNL Edema: No Peripheral Pulses WNL: Yes Integumentary: Yes: WNL Wound/Incision: Yes: Clean/Dry Neurological: Yes: WNL ...Motor Strength: WNL Psychiatric: Yes: WNL Labs: CBC, BMP 02/18/17 06:00 02/18/17 06:00 INR, PTT INR 1.48 (0.82-1.09) H D 02/17/17 13:00 Problem List - Problems (1) CAD (coronary artery disease) Code(s): I25.10 - ATHSCL HEART DISEASE OF [place] CORONARY ARTERY W/O ANG PCTRS Qualifiers: Coronary Disease-Associated Artery/Lesion type: unspecified vessel or lesion type [place] vs. transplanted heart: unspecified whether [place] or transplanted heart Associated angina: with unspecified angina Qualified Code(s): I25.119 - Atherosclerotic heart disease of [place] coronary artery with unspecified angina pectoris (2) COPD (chronic obstructive pulmonary disease) Code(s): J44.9 - CHRONIC OBSTRUCTIVE PULMONARY DISEASE, UNSPECIFIED Qualifiers : COPD type: emphysema (3) Exertional dyspnea Code(s): R06.09 - OTHER FORMS OF DYSPNEA (4) Pneumonia Code(s): J18.9 - PNEUMONIA, UNSPECIFIED ORGANISM Qualifiers: Pneumonia type: due to unspecified organism Laterality: bilateral Lung location: lower lobe of lung Qualified Code(s): J18.9 - Pneumonia, unspecified organism (5) Pulmonary nodule Code(s): R91.1 - SOLITARY PULMONARY NODULE (6) BPH (benign prostatic hypertrophy) Code(s): N40.0 - BENIGN PROSTATIC HYPERPLASIA WITHOUT LOWER URINRY TRACT SYMP Qualifiers: Lower urinary tract symptom presence: symptoms absent Qualified Code(s) : N40.0 - Benign prostatic hyperplasia without lower urinary tract symptoms (7) Hyperlipidemia Code(s): E78.5 - HYPERLIPIDEMIA, UNSPECIFIED Qualifiers: Hyperlipidemia type: unspecified Qualified Code(s): E78.5 - Hyperlipidemia, unspecified Assessment/Plan IV ABX NEBS STEROIDS OOB TO CHAIR DVT PROPHYLAXIS
[2017-02-19] MEDS: PANTOPRAZOLE 40 MG TABLET (FP) PO SCH (21:45)
[2017-02-19] MEDS: ASPIRIN COATED 81 MG TABLET.EC PO SCH (21:45)
[2017-02-19] MEDS: ATORVASTATIN CA 20 MG TABLET (FP) PO SCH (21:45)
[2017-02-20] MEDS: ALBUTEROL SO4 2.5/IPRATROPIUM 0.5 INH SOL 3 ML VIAL.NEB. NEB SCH (06:54)
[2017-02-20] MEDS ORDERED: LEVOTHYROXINE NA 100 MCG TABLET (FP) PO SCH (07:00)
--- NOTE | 2017-02-20 07:26 | DS ---
Physical Examination Vital Signs: Vital Signs Temperature 98 F 02/20/17 05:44 Pulse Rate 64 02/20/17 05:44 Respiratory Rate 20 02/20/17 05:44 Blood Pressure 106/59 02/20/17 05:44 O2 Sat by Pulse Oximetry (%) 94 L 02/19/17 21:00 Constitutional: Yes: No Distress Eyes: Yes: WNL HENT: Yes: WNL Neck: Yes: WNL Cardiovascular: Yes: WNL Respiratory: Yes: WNL Gastrointestinal: Yes: WNL Renal/: Yes: WNL Musculoskeletal: Yes: WNL Extremities: Yes: WNL Edema: No Peripheral Pulses WNL: Yes Integumentary: Yes: WNL Wound/Incision: Yes: Clean/Dry Neurological: Yes: WNL ...Motor Strength: WNL Psychiatric: Yes: WNL Labs: CBC, BMP 02/18/17 06:00 02/18/17 06:00 Discharge Summary Reason For Visit: DYSPNEA ON EXERTION, PNEUMONIA Current Active Problems CAD (coronary artery disease) (Acute) COPD (chronic obstructive pulmonary disease) (Acute) Exertional dyspnea (Acute) Pneumonia (Acute) Pulmonary nodule (Acute) Procedures: Principal: ct chest Hospital Course: admitted resp distress, treated with iv abx and iv steroids, improved Condition: Improved - Instructions Diet, Activity, Other Instructions: follow up ct chest in [address] mckinnon [id number] in 1-2 weeks low salt low fat diet Referrals: Rachael Mckinnon MD [Primary Care Provider] - Disposition: HOME - Home Medications Comprehensive Discharge Medication List: Ambulatory Orders Ascorbic Acid [Vitamin C] 500 mg PO DAILY 12/25/12 Aspirin Coated [Ecotrin -] 81 mg PO HS 12/25/12 Atorvastatin Calcium [Lipitor] 20 mg PO HS 12/25/12 Levothyroxine [Synthroid -] 200 mcg PO DAILY@0700 #30 tablet 07/11/15 Mag Carb/Al Hydrox/Alginic AC [Gaviscon Liquid] 30 ml PO PRN PRN #0 oral.susp Pantoprazole Sodium 40 mg PO HS #0 tablet. 05/03/16 Multivit-Min/FA/Lycopen/Lutein [Centrum Silver Men Tablet] 1 each PO DAILY 10/24 Acetaminophen [Tylenol .Regular Strength -] 650 mg PO Q4H PRN #0 tablet Amox-Tr/K Cl [Augmentin 500-125mg Tablet -] 1 tab PO BID@0800,1730 #14 tablet Budesonide/Formeterol Fumarate [SYMBICORT 160/4.5mcg -] 2 puff IH BID #1 inhaler 02/20/17 Lactobacillus Acidophilus [Bacid -] 1 tab PO BID #60 tab 02/20/17
[2017-02-20] MEDS ORDERED: AMOX TR/POT CLAV 500MG/125MG TABLETS (FP) PO SCH (08:00)
[2017-02-20] MEDS: LACTOBACILLUS ACIDOPHILUS 1 EACH TAB (FP) PO SCH (08:32)
[2017-02-20 09:15] VITALS: BP 127/56; PULSE 83; TEMP 98.6
== END 2017-02-20 09:25 | disposition home or self-care (01) | DRG 190 ==
LOC: JER 11:58 → JERBED 14:15 → J4W 20:03
PROVIDERS: ADMIT Family Medicine; ATTEND Family Medicine
DX: J44.0 Chronic obstructive pulmonary disease with (acute) lower respiratory infection (principal); J18.9 Pneumonia, unspecified organism; E78.5 Hyperlipidemia, unspecified; I10 Essential (primary) hypertension; I25.10 Atherosclerotic heart disease of native coronary artery without angina pectoris; E03.9 Hypothyroidism, unspecified; N40.0 Benign prostatic hyperplasia without lower urinary tract symptoms; Z95.5 Presence of coronary angioplasty implant and graft; K21.9 Gastro-esophageal reflux disease without esophagitis; K63.5 Polyp of colon; K57.90 Diverticulosis of intestine, part unspecified, without perforation or abscess without bleeding; K22.2 Esophageal obstruction; Z87.891 Personal history of nicotine dependence; G47.39 Other sleep apnea; R91.1 Solitary pulmonary nodule
CPT/HCPCS: 36415; 71010-TC; 71250-TC; 80053; 80061; 81003; 82803; 83036; 83605; 83721; 83880; 84484; 85025; 85610; 85730; 86157; 86850; 86900; 86901; 87040; 87070; 87086; 87205; 87899; 90688; 93005; 93010; 94640; 94660; 99283-25; G0008; J1644

== ENCOUNTER 2018-04-23 08:57 | Inpatient (IN) | payer OTHER ==
--- NOTE | 2018-04-23 09:13 | PDOC ---
History of Present Illness - General Stated Complaint: WEAKNESS Time Seen by Provider: 04/23/18 09:11 - History of Present Illness Initial Comments: 04/23/18 09:12 Ms. Pavon is a 77 yo male w/ pmh of HTN, HLD, CAD (s/p 5 stents) COPD, BPH, hypothyroidism who presents for evaluation of pre-syncopal episode earlier today. Patient reports he was walking in his house when he became dizzy and collapsed on the bed. His speech became slurred and he lost bladder control at this time. Denies any LOC or head injury. Speech quickly improved and patient back to baseline per who is with him. Patient further reports he has had 1 month of dizziness with weakness as well. The patient denies chest pain, shortness of breath, and headache. Denies fever, chills, nausea, vomit, diarrhea and constipation. Denies dysuria, frequency, urgency and hematuria. Past History - Past Medical History Allergies/Adverse Reactions: Allergies Allergy/AdvReac Type Severity Reaction Status Date / Time No Known Drug Allergies Allergy Verified 02/17/17 12:04 Home Medications: Ambulatory Orders Ascorbic Acid [Vitamin C] 500 mg PO DAILY 12/25/12 Aspirin Coated [Ecotrin -] 81 mg PO HS 12/25/12 Atorvastatin Calcium [Lipitor] 10 mg PO HS 12/25/12 Levothyroxine [Synthroid -] 200 mcg PO DAILY@0700 #30 tablet 07/11/15 Mag Carb/Aluminum Hydrox/Algin [Gaviscon Liquid] 30 ml PO PRN PRN #0 oral.susp 05/03/16 Multivit-Min/FA/Lycopen/Lutein [Centrum Silver Men Tablet] 1 each PO DAILY 10/24 Acetaminophen [Tylenol .Regular Strength -] 650 mg PO Q4H PRN #0 tablet Budesonide/Formeterol Fumarate [SYMBICORT 160/4.5mcg -] 2 puff IH BID PRN Pantoprazole Sodium 40 mg PO HS PRN 04/23/18 Anemia: No Asthma: No Cancer: No Cardiac Disorders: Yes (ASHD) CVA: No COPD: Yes CHF: No Dementia: No Diabetes: No GI Disorders: Yes (GERD W/ SCHATZKI RING,, COLON POLYPS,DIVERTICULOSIS) Disorders: Yes (BPH) HTN: No Hypercholesterolemia: Yes (HYPERLIPIDEMIA) Kidney Stones: Yes Liver Disease: No Seizures: No Thyroid Disease: Yes (HYPOTHYROID) - Surgical History Abdominal Surgery: No Appendectomy: No Cardiac Surgery: No Cholecystectomy: No Lung Surgery: Yes (UPPER LUNG BIOPSY) Neurologic Surgery: No Orthopedic Surgery: No - Immunization History Immunization Up to Date: Yes - Suicide/Smoking/Psychosocial Hx Smoking History: Former smoker Have you smoked in the past 12 months: No If you are a former smoker, when did you quit?: 40 YRS Hx Alcohol Use: Yes (SOCIAL) Drug/Substance Use Hx: No Substance Use Type: None Hx Substance Use Treatment: No Review of Systems - Review of Systems Comments:: 04/23/18 09:12 GENERAL/CONSTITUTIONAL: Generalized weakness x1 month. No fever or chills. HEAD, EYES, EARS, NOSE AND THROAT: No change in vision. No ear pain or discharge. No sore throat. CARDIOVASCULAR: No chest pain or shortness of breath RESPIRATORY: No cough, wheezing, or hemoptysis. GASTROINTESTINAL: No nausea, vomiting, diarrhea or constipation. GENITOURINARY: No dysuria, frequency, or change in urination. MUSCULOSKELETAL: No joint or muscle swelling or pain. No neck or back pain. SKIN: No rash NEUROLOGIC: +Dizziness as described w/ presyncopal episode and transient slurred speech. No headache, loss of consciousness, or change in strength/ sensation. ENDOCRINE: No increased thirst. No abnormal weight change HEMATOLOGIC/LYMPHATIC: No anemia, easy bleeding, or history of blood clots. ALLERGIC/IMMUNOLOGIC: No hives or skin allergy. *Physical Exam - Physical Exam Comments: 04/23/18 09:12 GENERAL: +Patient noted to have orthostatic hypotension. Awake, alert, and fully oriented, in no acute distress HEAD: No signs of trauma, normocephalic, atraumatic EYES: PERRLA, EOMI, sclera anicteric, conjunctiva clear ENT: Auricles normal inspection, hearing grossly normal, nares patent, oropharynx clear without exudates. Moist mucosa NECK: Normal ROM, supple, no lymphadenopathy, JVD, or masses LUNGS: No distress, speaks full sentences, clear to auscultation bilaterally HEART: Regular rate and rhythm, normal S1 and S2, no murmurs, rubs or gallops, peripheral pulses normal and equal bilaterally. ABDOMEN: Soft, nontender, normoactive bowel sounds. No guarding, no rebound. No masses EXTREMITIES: Normal inspection, Normal range of motion, no edema. No clubbing or cyanosis. NEUROLOGICAL: Cranial nerves II through XII grossly intact. Normal speech, normal gait, no focal sensorimotor deficits SKIN: Warm, Dry, normal turgor, no rashes or lesions noted. ED Treatment Course - LABORATORY CBC & Chemistry Diagram: 04/23/18 10:03 04/23/18 10:03 Medical Decision Making - Medical Decision Making 04/23/18 11:09 Mr. Pavon is a 77 yo male w/ pmh as described who presents for evaluation of symptoms c/w hypotension vs. *DC/Admit/Observation/Transfer Diagnosis at time of Disposition: Orthostatic hypotension Hypothyroidism Qualifiers: Hypothyroidism type: unspecified Qualified Code(s): E03.9 - Hypothyroidism, unspecified - Discharge Dispostion Decision to Admit order: Yes - Referrals - Patient Instructions - Post Discharge Activity
[2018-04-23 09:15] VITALS: BMI 30.3
[2018-04-23 10:09] LABS: BASO % 0.4 % (0-2.0); EOS % 14.9 % (0-4.5); HEMATOCRIT 41.8 % (35.4-49); HEMOGLOBIN 14.7 GM/dL (11.7-16.9); LYMPH % 19.7 % (8-40); MCH 32.5 pg (25.7-33.7); MCHC 35.1 g/dl (32.0-35.9); MEAN CELL VOLUME 92.7 fl (80-96); MEAN PLT VOLUME 6.7 fl (7.5-11.1); MONO % 5.4 % (3.8-10.2); NEUT % 59.6 % (42.8-82.8); PLATELET COUNT 170 K/MM3 (134-434); RBC 4.51 M/mm3 (4.00-5.60); RDW 16.1 % (11.9-15.9); WHITE BLOOD COUNT 5.2 K/mm3 (4.0-10.0)
[2018-04-23] MEDS ORDERED: SODIUM CHLORIDE 500 ML IV STA (10:19)
[2018-04-23] MEDS ORDERED: SODIUM CHLORIDE 1,000 ML IV STA (10:19)
[2018-04-23 10:47] LABS: ALBUMIN 3.4 g/dl (3.4-5.0); ALK PHOS 69 U/L (45-117); ANION GAP 6 MMOL/L (8-16); BILIRUBIN,TOTAL 0.3 mg/dL (0.2-1); BLOOD UREA NITROGEN 23 mg/dL (7-18); CALCIUM 8.4 mg/dL (8.5-10.1); CHLORIDE 107 mmol/L (98-107); CO2 28 mmol/L (21-32); CREATININE 1.2 mg/dL (0.55-1.3); GLUCOSE,RANDOM 106 mg/dL (74-106); POTASSIUM 4.9 mmol/L (3.5-5.1); SGOT/AST 24 U/L (15-37); SGPT/ALT 31 U/L (13-61); SODIUM 141 mmol/L (136-145)
--- NOTE | 2018-04-23 11:05 | PDOC ---
Attending Attestation - Resident Resident Name: StevenmuralimandoRian - ED Attending Attestation I have performed the following: I have examined & evaluated the patient, The case was reviewed & discussed with the resident, I agree w/resident's findings & plan - HPI HPI: 04/23/18 12:03 Librado 76-year-old man with a history of HLD, HTN, CAD (s/p stent x 5), COPD, BPH, hypothyroidism presenting with near syncope this morning after getting up this morning.. No head trauma. +dizziness, worse with getting up and walking. His speech became slurred and he lost bladder control at this time. Denies any LOC or head injury. Speech quickly improved and patient back to baseline per who is with him. Patient further reports he has had 1 month of dizziness with weakness as well. 04/23/18 12:04 - Physicial Exam PE: 04/23/18 12:05 NAD, well appearing, PERRL, EOMI, MMM, nl conjunctiva, anicteric; neck supple. lungs clear, RRR, abdomen soft nontender. GOMEZ x4, no focal neuro deficits. No peripheral edema. normal color for ethnicity, WW. - Medical Decision Making 04/23/18 12:05 Librado 76-year-old man with a history of HLD, HTN, CAD (s/p stent x 5), COPD, BPH, hypothyroidism presenting with near syncope this morning after getting up from bed. No head trauma. +dizziness, worse with getting up and walking. Denies new changes to meds, but is poorly compliant. Vital signs reviewed, +orthostatic. bradycardic. Prior notes reviewed, including admissions, discharges and consultations. laboratory results and imaging reviewed, basic labs and lytes wnl, notable for elevated tsh, c/w poor control of hypothyroidism CXR_similar interstitial changes noted to xr compared to CT Cardiac panel_ trop neg. EKG normal sinus rhythm, no interval abnormalities, narrow QRS, ST and T wave segments and morphology normal. Nonspecific T wave abnormalities ED course: unremarkable , +orthostatic, given gentle fluids Dispo: Admit for orthostatic hypotension, symptomatic with hypothyroidism and near syncope episode. Discussed results and management plan with pt and family member at bedside, agree with impression and plan Heart Score/ECG Review - ECG Impressions Normal ECG: No Comment:: 04/23/18 11:04 EKG normal sinus rhythm, no interval abnormalities, narrow QRS, ST and T wave segments and morphology normal. Nonspecific T wave abnormalities
--- NOTE | 2018-04-23 12:25 | EKG ---
Test Reason : Blood Pressure : / mmHG Vent. Rate : 050 BPM Atrial Rate : 048 BPM P-R Int : 000 ms QRS Dur : 098 ms QT Int : 442 ms P-R-T Axes : 000 016 096 degrees QTc Int : 402 ms ATRIAL FIBRILLATION WITH SLOW VENTRICULAR RESPONSE NONSPECIFIC T WAVE ABNORMALITY ABNORMAL ECG Confirmed by MD PRASHANTH, GRACIA ([id number]) on 04/23/2018 12:25:31 PM Referred By: Confirmed By:GRACIA ALFORD MD
--- NOTE | 2018-04-23 16:20 | HP ---
Admitting History and Physical - Primary Care Physician PCP: Rachael Gan - Admission Chief Complaint: SYNCOPE History of Present Illness: Ms. Pavon is a 77 yo male w/ pmh of HTN, HLD, CAD (s/p 5 stents) COPD, BPH, hypothyroidism who presents for evaluation of pre-syncopal episode earlier today. Patient reports he was walking in his house when he became dizzy and collapsed on the bed. His speech became slurred and he lost bladder control at this time. Denies any LOC or head injury. Speech quickly improved and patient back to baseline per who is with him. Patient further reports he has had 1 month of dizziness with weakness as well. History Source: Patient, Medical Record - Past Medical History Cardiovascular: Yes: CAD, HTN, Hyperlipdemia Pulmonary: Yes: Sleep Apnea Gastrointestinal: Yes: GERD Renal/: Yes: BPH Endocrine: Yes: Hypothyroidism - Past Surgical History Past Surgical History: Yes: Stent - Smoking History Smoking history: Former smoker Have you smoked in the past 12 months: No If you are a former smoker, when did you quit?: 40 YRS - Alcohol/Substance Use Hx Alcohol Use: Yes (SOCIAL) History of Substance Use: reports: None - Social History ADL: Independent History of Recent Travel: Yes Home Medications - Allergies Allergies/Adverse Reactions: Allergies Allergy/AdvReac Type Severity Reaction Status Date / Time No Known Drug Allergies Allergy Verified 02/17/17 12:04 - Home Medications Home Medications: Ambulatory Orders Ascorbic Acid [Vitamin C] 500 mg PO DAILY 12/25/12 Aspirin Coated [Ecotrin -] 81 mg PO HS 12/25/12 Atorvastatin Calcium [Lipitor] 10 mg PO HS 12/25/12 Levothyroxine [Synthroid -] 200 mcg PO DAILY@0700 #30 tablet 07/11/15 Mag Carb/Aluminum Hydrox/Algin [Gaviscon Liquid] 30 ml PO PRN PRN #0 oral.susp 05/03/16 Multivit-Min/FA/Lycopen/Lutein [Centrum Silver Men Tablet] 1 each PO DAILY 10/24 Acetaminophen [Tylenol .Regular Strength -] 650 mg PO Q4H PRN #0 tablet Budesonide/Formeterol Fumarate [SYMBICORT 160/4.5mcg -] 2 puff IH BID PRN Pantoprazole Sodium 40 mg PO HS PRN 04/23/18 Review of Systems - Review of Systems Constitutional: reports: Weakness Eyes: reports: No Symptoms HENT: reports: No Symptoms Neck: reports: No Symptoms Cardiovascular: reports: Palpitations Respiratory: reports: No Symptoms Gastrointestinal: reports: No Symptoms Genitourinary: reports: No Symptoms Musculoskeletal: reports: No Symptoms Integumentary: reports: No Symptoms Neurological: reports: Dizziness, Weakness Hematology/Lymphatic: reports: No Symptoms Psychiatric: reports: No Symptoms Physical Examination Vital Signs: Vital Signs Temperature 97.6 F 04/23/18 14:51 Pulse Rate 48 L 04/23/18 14:51 Respiratory Rate 16 04/23/18 14:51 Blood Pressure 107/39 L 04/23/18 14:51 O2 Sat by Pulse Oximetry (%) 100 04/23/18 14:51 Constitutional: Yes: Mild Distress Eyes: Yes: WNL HENT: Yes: WNL Neck: Yes: WNL Cardiovascular: Yes: Bradycardia Respiratory: Yes: WNL Gastrointestinal: Yes: WNL Renal/: Yes: WNL Musculoskeletal: Yes: WNL Extremities: Yes: WNL Edema: No Peripheral Pulses WNL: Yes Integumentary: Yes: Venous Stasis Changes Wound/Incision: Yes: Clean/Dry Neurological: Yes: Other ...Motor Strength: LLE, RLE Psychiatric: Yes: Other Labs: CBC, BMP 04/23/18 10:03 04/23/18 10:03 Imaging - Results Chest X-ray: Report Reviewed Problem List - Problems (1) Hypothyroidism Code(s): E03.9 - HYPOTHYROIDISM, UNSPECIFIED Qualifiers: Hypothyroidism type: unspecified Qualified Code(s): E03.9 - Hypothyroidism , unspecified (2) Orthostatic hypotension Code(s): I95.1 - ORTHOSTATIC HYPOTENSION (3) BPH (benign prostatic hypertrophy) Code(s): N40.0 - BENIGN PROSTATIC HYPERPLASIA WITHOUT LOWER URINRY TRACT SYMP Qualifiers: Lower urinary tract symptom presence: symptoms absent Qualified Code(s): N40.0 - Benign prostatic hyperplasia without lower urinary tract symptoms (4) CAD (coronary artery disease) Code(s): I25.10 - ATHSCL HEART DISEASE OF [place] CORONARY ARTERY W/O ANG PCTRS Qualifiers: Coronary Disease-Associated Artery/Lesion type: unspecified vessel or lesion type [place] vs. transplanted heart: unspecified whether [place] or transplanted heart Associated angina: with unspecified angina Qualified Code (s): I25.119 - Atherosclerotic heart disease of [place] coronary artery with unspecified angina pectoris (5) COPD (chronic obstructive pulmonary disease) Code(s): J44.9 - CHRONIC OBSTRUCTIVE PULMONARY DISEASE, UNSPECIFIED Qualifiers: COPD type: emphysema (6) Chest pain Code(s): R07.9 - CHEST PAIN, UNSPECIFIED Qualifiers: Chest pain type: unspecified Qualified Code(s): R07.9 - Chest pain, unspecified (7) Sinus bradycardia Code(s): R00.1 - BRADYCARDIA, UNSPECIFIED Assessment/Plan TSH 89 WHICH INDICATES SEVERE HYPOTHYROIDIS WILL ADJUST SYNTHROID ENDOCRINE CONSULT CHECK TELE MONITOR PATIENT'S HEART RATE WILL CORRECT THYROID LEVEL IMPROVES CHECK ECHO/CAROTID PT EVAL NEURO CHECKS FALL RISKS CARDIO EVAL
[2018-04-23] MEDS ORDERED: ACETAMINOPHEN 325 MG TABLET (FP) PO PRN (16:25)
--- NOTE | 2018-04-23 16:48 | CON.CARD ---
Consult Consult Specialty:: cardio - History of Present Illness Chief Complaint: presyncope History of Present Illness: 77 M here with presyncope. walking in home on DOA when felt LH. noted brief slurred speech at that time, which resolved quickly. pt thinks may have briefly passed out--woke up btw bed and floor he says. no cp or palpitations, no new neuro deficits. chronic sob with activity stable x many yrs, sec to copd. PMH: HTN HLD CAD (s/p stents) COPD BPH hypothyroidism - Past Medical History Cardio/Vascular: Yes: CAD, HTN, Hyperlipdemia Pulmonary: Yes: Sleep Apnea Gastrointestinal: Yes: GERD Renal/: Yes: BPH Endocrine: Yes: Hypothyroidism - Past Surgical History Past Surgical History: Yes: Stent - Alcohol/Substance Use Hx Alcohol Use: Yes (SOCIAL) History of Substance Use: reports: None - Smoking History Smoking history: Former smoker Have you smoked in the past 12 months: No If you are a former smoker, when did you quit?: 40 YRS - Social History ADL: Independent History of Recent Travel: Yes Home Medications - Allergies Allergies/Adverse Reactions: Allergies Allergy/AdvReac Type Severity Reaction Status Date / Time No Known Drug Allergies Allergy Verified 02/17/17 12:04 - Home Medications Home Medications: Ambulatory Orders Ascorbic Acid [Vitamin C] 500 mg PO DAILY 12/25/12 Aspirin Coated [Ecotrin -] 81 mg PO HS 12/25/12 Atorvastatin Calcium [Lipitor] 10 mg PO HS 12/25/12 Levothyroxine [Synthroid -] 200 mcg PO DAILY@0700 #30 tablet 07/11/15 Mag Carb/Aluminum Hydrox/Algin [Gaviscon Liquid] 30 ml PO PRN PRN #0 oral.susp 05/03/16 Multivit-Min/FA/Lycopen/Lutein [Centrum Silver Men Tablet] 1 each PO DAILY 10/24 Acetaminophen [Tylenol .Regular Strength -] 650 mg PO Q4H PRN #0 tablet Budesonide/Formeterol Fumarate [SYMBICORT 160/4.5mcg -] 2 puff IH BID PRN Pantoprazole Sodium 40 mg PO HS PRN 04/23/18 Review of Systems - Review of Systems Constitutional: denies: Chills, Fever Eyes: denies: Eye Pain HENT: denies: Nasal Congestion Neck: denies: Stiffness Cardiovascular: denies: Palpitations Respiratory: denies: Orthopnea, PND Gastrointestinal: denies: Diarrhea, Rectal Bleeding Genitourinary: denies: Burning, Hematuria Musculoskeletal: denies: Muscle Pain Integumentary: denies: Rash Neurological: reports: Syncope. denies: Numbness, Seizure Endocrine: denies: Excessive Sweating Hematology/Lymphatic: denies: Excessive Bleeding Vital Signs: Vital Signs Temperature 97.6 F 04/23/18 14:51 Pulse Rate 48 L 04/23/18 14:51 Respiratory Rate 16 04/23/18 14:51 Blood Pressure 107/39 L 04/23/18 14:51 O2 Sat by Pulse Oximetry (%) 100 04/23/18 14:51 Constitutional: Yes: No Distress, Obese Eyes: No: Sclera Icterus HENT: No: Nasal Congestion Neck: No: Decreased ROM Respiratory: Yes: CTA Bilaterally. No: Accessory Muscle Use, Rales, Wheezes Gastrointestinal: Yes: Normal Bowel Sounds. No: Distention, Hepatomegaly, Palpable Mass, Tenderness Cardiovascular: Yes: Pulse Irregular JVD: No Carotid Bruit: No PMI: Non-Displaced Heart Sounds: Yes: S1, S2. No: Gallop Murmur: Yes: Systolic Murmur (soft heart sounds. syst murmur rusb). No: Diastolic Murmur Musculoskeletal: Yes: Other (No kyphosis) Extremities: No: Cool, Cyanosis Edema: No Peripheral Pulses: 2+ Left Carotid, 2+ Right Carotid, 2+ Left Doralis Pedis, 2+ Right Dorsalis Pedis Integumentary: No: Jaundice Neurological: Yes: Alert, Oriented (x3) Psychiatric: No: Agitated - Other Data Labs, Other Data: CBC, BMP 04/23/18 10:03 04/23/18 10:03 Troponin, BNP 04/23/18 10:03 Troponin I < 0.02 Troponin, BNP 04/23/18 10:03 Troponin I < 0.02 Laboratory Tests 02/18/17 04/23/18 04/23/18 06:00 10:03 10:03 WBC 5.2 Hgb 14.7 Plt Count 170 D Sodium 141 Potassium 4.9 Carbon Dioxide 28 BUN 23 H Creatinine 1.2 AST 24 ALT 31 Troponin I < 0.02 B-Natriuretic Peptide 654.93 H Assessment/Plan ECG: afib slow conduction (HR 50); nonspecific ST-Ts lateral leads-- all findings new vs prior 01/2017 CXR: interstitial findings unchanged vs prior. no infiltrate, effusion presyncope: -episode occurred when in upright position at home -h/o asymptomatic sinus bradycardia on prior admit here (2015), tsh elevated at that time. AF with low-normal HR here -TSH very high presently (80)--? if presyncope due to bradyarrhythmia. -suspect orthostatic hypotension due to combination of vol depletion/hypothyroid , given pt bp's soft here with orthostatic drop in ER (96 supine to 87 standing) , sx's occurred in standing position and labs appear slightly prerenal -s/p 1500 cc IVF in ER. bp improved. -encourage po intake (pt aware). defer further IVF while assess bp trend -monitor orthostatics. -thyroid optimization per pmd -no pathological conduction system dz at present, no indication for PPM--cont tele monitoring afib: -new afib noted on ekg here, HR slow despite no AVN blockers -habitus suspicious for ELIAS--rec PSG as outpt -cont tele, expect HR to normalize as becomes euthyroid -check echo (also for syst murmur) -CHADS VASC = 3. denies h/o GIB/PUD or falls. AC warranted as risk of stroke is > risk of bleeding here. rec eliquis 5mg bid to start h/o CAD, prior stent: -last stress test 2015 at outside cardio, reportedly normal per dr vivar notes -ecg no ischemic changes. trop neg x 1--repeat ordered -doubt acute coronary syndrome clinically -cont home statin. -stop aspirin as pt starting NOAC agent and has chronic, stable CAD with no recent PCI (last stent 6-7 yrs ago per pt)
[2018-04-23] MEDS ORDERED: LEVOTHYROXINE NA 50 MCG TABLET (FP) PO SCH (17:00)
[2018-04-23] MEDS ORDERED: PT OWN MED DRAWER 7, Y5N ONE (21:49)
--- NOTE | 2018-04-23 21:50 | CONSULT ---
Consult - text type - Consultation Consultation Note: NEUROLOGY CONSULTATION is greatly appreciated: This 77 yo RH man with Chol, COPD and along h/o hypothyroidism acknowledges non-compliance with L-Thyroxine replacement. Other meds include: Ascorbic Acid; Aspirin 81; Atorvastatin; Acetaminophen; SYMBICORT; and Pantoprazole. Chronic "Restless Legs" with difficulty achieving sleep. Admitted after 1 month of progressive weakness with lightheadedness culminating in a Syncopal episode this AM with urinary incontinence. Few weeks of difficulty climbing stairs and walking uphill. Last few days of shuffling/fatigue Multiple BP's range 90-107/40-53 with some orthostatic changes. TSH: 89.90 Carotid duplesx shows mild plaque at the R proximal ICA without hemodynamic changes. MAYELA: Obese. Pale. Periorbital edema Bradycardia (50's) MS/Speech: Normal CN II-XII: normal Motor: No drift or tremor. Normal strength. Absent AJ's. Toes downgoing. Gets OO Chair without difficulty. Coord: No FTN Dystaxia Sensory: Reduced vibration over toes. Romberg - Gait: Sl shuffle. IMP: Syncope due to hypotension/orthostatic hypotension and bradycardia. 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 Restless legs syndrome SUGGEST: Thyroid supplementation as per Dr. Rollins. Improve compliance by preparing AM Synthroid on the bedside table. Check B12, Glycosylated Hemoglobin A1-C Neuro f/u as out patient for work-up of Neuropathy and Rx of RLS once BP has normalized. Thank you very much, Santiago Roche MD
[2018-04-23] MEDS: APIXABAN 5 MG TABLET PO SCH (21:52)
[2018-04-23] MEDS: BUDESONIDE/FORMETEROL FUMARATE 160/4.5 mcg INHALER IH SCH (21:53)
[2018-04-23] MEDS ORDERED: ATORVASTATIN CA 10 MG TABLET (FP) PO SCH (22:00)
--- NOTE | 2018-04-24 00:25 | CONSULT ---
Consult Consult Specialty:: endocrine Referred by:: dr.ammir mckinnon Reason for Consultation:: hypothyroidism - History of Present Illness Chief Complaint: weakness /light headed and tired History of Present Illness: 77 yo male w/ pmh of hypothyroidism,HTN, HLD, CAD (s/p 5 stents) COPD, BPH, who presents for evaluation of pre-syncopal. Patient reports he was walking in his house when he became dizzy and collapsed on the bed. His speech became slurred and he lost bladder control at this time. Denies head trauma,fever cough chest pain.He has not been compliant with taking thyroid medication.did not remember when he last took medication.an - Past Medical History Cardio/Vascular: Yes: CAD, HTN, Hyperlipdemia Pulmonary: Yes: Sleep Apnea Gastrointestinal: Yes: GERD Renal/: Yes: BPH Endocrine: Yes: Hypothyroidism - Past Surgical History Past Surgical History: Yes: Stent - Alcohol/Substance Use Hx Alcohol Use: Yes (SOCIAL) History of Substance Use: reports: None - Smoking History Smoking history: Former smoker Have you smoked in the past 12 months: No If you are a former smoker, when did you quit?: 40 YRS - Social History ADL: Independent History of Recent Travel: Yes Home Medications - Allergies Allergies/Adverse Reactions: Allergies Allergy/AdvReac Type Severity Reaction Status Date / Time No Known Drug Allergies Allergy Verified 02/17/17 12:04 - Home Medications Home Medications: Ambulatory Orders Ascorbic Acid [Vitamin C] 500 mg PO DAILY 12/25/12 Aspirin Coated [Ecotrin -] 81 mg PO HS 12/25/12 Atorvastatin Calcium [Lipitor] 10 mg PO HS 12/25/12 Levothyroxine [Synthroid -] 200 mcg PO DAILY@0700 #30 tablet 07/11/15 Mag Carb/Aluminum Hydrox/Algin [Gaviscon Liquid] 30 ml PO PRN PRN #0 oral.susp 05/03/16 Multivit-Min/FA/Lycopen/Lutein [Centrum Silver Men Tablet] 1 each PO DAILY 10/24 Acetaminophen [Tylenol .Regular Strength -] 650 mg PO Q4H PRN #0 tablet Budesonide/Formeterol Fumarate [SYMBICORT 160/4.5mcg -] 2 puff IH BID PRN Pantoprazole Sodium 40 mg PO HS PRN 04/23/18 Review of Systems - Review of Systems Constitutional: reports: Lethargy, Weakness Eyes: reports: No Symptoms HENT: reports: Hearing Loss Neck: reports: No Symptoms Cardiovascular: reports: Shortness of Breath Respiratory: reports: Exercise Intolerance, SOB on Exertion Gastrointestinal: reports: Bloating Genitourinary: reports: No Symptoms Breasts: reports: No Symptoms Reported Musculoskeletal: reports: Muscle Cramps, Muscle Weakness Integumentary: reports: No Symptoms Neurological: reports: Weakness Endocrine: reports: Unexplained Weight Gain Physical Exam Vital Signs: Vital Signs Temperature 98.1 F 04/23/18 19:00 Pulse Rate 54 L 04/23/18 19:00 Respiratory Rate 18 04/23/18 19:00 Blood Pressure 112/41 L 04/23/18 19:00 O2 Sat by Pulse Oximetry (%) 99 04/23/18 21:00 Constitutional: Yes: Calm Eyes: Yes: EOM Intact HENT: Yes: Normocephalic Neck: Yes: Thyromegaly Cardiovascular: Yes: Bradycardia Respiratory: Yes: CTA Bilaterally Gastrointestinal: Yes: Normal Bowel Sounds ...Rectal Exam: Yes: Deferred Renal/: Yes: WNL Breast(s): Yes: WNL Musculoskeletal: Yes: Muscle Weakness Extremities: Yes: WNL Edema: No Peripheral Pulses WNL: Yes Neurological: Yes: Alert, Oriented, Weakness Labs: CBC, BMP 04/23/18 10:03 04/23/18 10:03 Problem List - Problems (1) Hypothyroidism Code(s): E03.9 - HYPOTHYROIDISM, UNSPECIFIED Qualifiers: Hypothyroidism type: unspecified Qualified Code(s): E03.9 - Hypothyroidism , unspecified (2) Orthostatic hypotension Code(s): I95.1 - ORTHOSTATIC HYPOTENSION (3) Exertional dyspnea Code(s): R06.09 - OTHER FORMS OF DYSPNEA Assessment/Plan Current Active Problems Hypothyroidism (Acute) Orthostatic hypotension (Acute) bradycardia hypovolemia Abnormal Lab Results 04/23/18 04/23/18 04/23/18 10:03 10:03 17:30 RDW 16.1 H MPV 6.7 L D Eosinophils % 14.9 H Anion Gap 6 L BUN 23 H Calcium 8.4 L Creatine Kinase 351 H CK-MB (CK-2) 7.0 H Total Protein 6.0 L TSH 89.90 H D plan: check B12 continue synthroid increased to 250mcg daily outpatient monitoring tfts
[2018-04-24] MEDS ORDERED: PT OWN MED DRAWER 7, Y5N ONE ×2 (05:33→09:50)
[2018-04-24] MEDS: LEVOTHYROXINE NA 125 MCG TABLET (FP) PO SCH (06:32)
[2018-04-24 06:52] LABS: HEMATOCRIT 39.7 % (35.4-49); HEMOGLOBIN 13.9 GM/dL (11.7-16.9); MCH 32.1 pg (25.7-33.7); MEAN CELL VOLUME 91.9 fl (80-96); PLATELET COUNT 180 K/MM3 (134-434); RBC 4.32 M/mm3 (4.00-5.60); WHITE BLOOD COUNT 5.4 K/mm3 (4.0-10.0)
[2018-04-24] MEDS ORDERED: LEVOTHYROXINE NA 200 MCG TABLET PO SCH (07:00)
[2018-04-24 07:42] LABS: ALBUMIN 3.1 g/dl (3.4-5.0); ALK PHOS 71 U/L (45-117); ANION GAP 6 MMOL/L (8-16); BILIRUBIN,TOTAL 0.6 mg/dL (0.2-1); BLOOD UREA NITROGEN 16 mg/dL (7-18); CALCIUM 7.9 mg/dL (8.5-10.1); CHLORIDE 108 mmol/L (98-107); CHOLESTEROL 229 mg/dL (50-200); CO2 28 mmol/L (21-32); CREATININE 1.1 mg/dL (0.55-1.3); GLUCOSE,RANDOM 99 mg/dL (74-106); HDL CHOLESTEROL 39 mg/dL (40-60); POTASSIUM 4.2 mmol/L (3.5-5.1); SGOT/AST 24 U/L (15-37); SGPT/ALT 28 U/L (13-61); SODIUM 142 mmol/L (136-145); TOT PROT 5.8 g/dl (6.4-8.2); TRIGLYCERIDES 174 mg/dL (0-150)
--- NOTE | 2018-04-24 09:43 | PN ---
Progress Note (short form) - Note Progress Note: Chief Complaint: presyncope History of Present Illness: feels back to normal. no chest pain, palps, dizzy, lightheadedness, dyspnea Current Medications Acetaminophen (Tylenol -) 650 mg PO Q6H PRN PRN Reason: PAIN OR FEVER Apixaban (Eliquis -) 5 mg PO BID [facility] Last Admin: 04/23/18 21:52 Dose: 5 mg Atorvastatin Calcium (Lipitor -) 10 mg PO HS [facility] Last Admin: 04/23/18 21:52 Dose: 10 mg Budesonide/Formoterol Fumarate (Symbicort 160/4.5mcg -) 2 puff IH BID [facility] Last Admin: 04/23/18 21:53 Dose: 2 puff Levothyroxine Sodium (Synthroid -) 250 mcg PO DAILY@0700 [facility] Last Admin: 04/24/18 06:32 Dose: 250 mcg Vital Signs: Vital Signs Period Temp Pulse Resp BP Sys/Sheldon Pulse Ox Last 24 Hr 97.3 F-98.1 F 42-60 12-20 87-122/39-69 97-100 Constitutional: Yes: No Distress, Obese Eyes: No: Sclera Icterus HENT: No: Nasal Congestion Neck: No: Decreased ROM Respiratory: Yes: CTA Bilaterally. No: Accessory Muscle Use, Rales, Wheezes Gastrointestinal: Yes: Normal Bowel Sounds. No: Distention, Hepatomegaly, Palpable Mass, Tenderness Cardiovascular: Yes: Pulse Irregular JVD: No Carotid Bruit: No PMI: Non-Displaced Heart Sounds: Yes: S1, S2. No: Gallop Murmur: Yes: Systolic Murmur (soft heart sounds. syst murmur rusb). No: Diastolic Murmur Musculoskeletal: Yes: Other (No kyphosis) Extremities: No: Cool, Cyanosis Edema: No Peripheral Pulses: 2+ Left Carotid, 2+ Right Carotid, 2+ Left Doralis Pedis, 2+ Right Dorsalis Pedis Integumentary: No: Jaundice Neurological: Yes: Alert, Oriented (x3) Psychiatric: No: Agitated Assessment/Plan ECG: afib slow conduction (HR 50); nonspecific ST-Ts lateral leads-- all findings new vs prior 01/2017 CXR: interstitial findings unchanged vs prior. no infiltrate, effusion carotid doppler: no hemodynamically significant stenosis tele: afib slow rate, 30s when sleeping presyncope: -episode occurred when in upright position at home -h/o asymptomatic sinus bradycardia on prior admit here (2016), tsh elevated at that time. AF with low-normal HR here -TSH very high presently (80)--? if presyncope due to bradyarrhythmia. -suspect orthostatic hypotension due to combination of vol depletion/hypothyroid , given pt bp's soft here with orthostatic drop in ER (96 supine to 87 standing) , sx's occurred in standing position and labs appear slightly prerenal -s/p 1500 cc IVF in ER. bp improved. -encourage po intake (pt aware). defer further IVF -monitor orthostatics. -thyroid optimization per pmd, endocrine -no pathological conduction system dz at present, no indication for PPM--cont tele monitoring - echo pending, if benign findings no further cardiac workup as inpatient afib: -new afib noted on ekg here, HR slow despite no AVN blockers -habitus suspicious for ELIAS --rec PSG as outpt -cont tele, expect HR to normalize as becomes euthyroid - echo pending (also for syst murmur) -CHADS VASC = 3. denies h/o GIB/PUD or falls. AC warranted as risk of stroke is > risk of bleeding here. rec eliquis 5mg bid to start h/o CAD, prior stent: -last stress test 2015 at outside cardio, reportedly normal per dr vivar notes -ecg no ischemic changes. trop neg x 1--repeat ordered -doubt acute coronary syndrome clinically -cont home statin. -stop aspirin as pt starting NOAC agent and has chronic, stable CAD with no recent PCI (last stent 6-7 yrs ago per pt)
[2018-04-24] MEDS: BUDESONIDE/FORMETEROL FUMARATE 160/4.5 mcg INHALER IH SCH ×2 (09:51→21:32)
[2018-04-24] MEDS: APIXABAN 5 MG TABLET PO SCH ×2 (09:51→21:32)
[2018-04-24] MEDS ORDERED: ASPIRIN COATED 81 MG TABLET.EC PO SCH (10:00)
[2018-04-24 10:36] LABS: ERYTHROCYTE SEDIMENTATION RATE 2 mm/hr (0-20)
--- NOTE | 2018-04-24 15:22 | ECHO ---
Name: CHUNG BUTCHER Exam:Adult Echocardiogram Study Date: 04/24/2018 10:25 AM Age: 77 yrs Reason For Study: SYNCOPE Height: 73 in Weight: 230 lb BSA: 2.3 m2 MMode/2D Measurements & Calculations IVSd: 1.5 cm Ao root diam: 2.6 cm LVIDd: 4.2 cm LA dimension: 4.2 cm LVIDs: 2.9 cm LVPWd: 1.1 cm EDV(Teich): 77.0 ml LAV (MOD-bp): 83.0 ml ESV(Teich): 31.7 ml Doppler Measurements & Calculations MV E max jose guadalupe: 93.1 cm/sec TR max jose guadalupe: 176.5 cm/sec MV dec time: 0.20 sec TR max P.5 mmHg Med Peak E' Jose Guadalupe: 9.1 cm/sec PI Vmax: 198.2 cm/sec Med E/e': 10.2 Lat Peak E' Jose Guadalupe: 14.0 cm/sec Lat E/e': 6.6 Procedure A two-dimensional transthoracic echocardiogram with color flow and Doppler was performed. Left Ventricle There is moderate concentric left ventricular hypertrophy. The left ventricular ejection fraction is normal. Regional wall motion abnormalities cannot be excluded due to limited visualization. Right Ventricle The right ventricle is not well visualized. Atria The left atrium is moderately dilated. The right atrium is moderately dilated. Mitral Valve There is mild to moderate mitral valve thickening. There is no mitral valve stenosis. There is mild m itral regurgitation. Tricuspid Valve There is mild tricuspid valve thickening. There is no tricuspid stenosis. There is mild tricuspid regurgitation. Right ventricular systolic pressure is normal. Aortic Valve The aortic valve is not well visualized. There is moderate aortic valve thickening. There is moderate aortic sclerosis.;. No hemodynamically significant valvular aortic stenosis. No aortic regurgitation is pres ent. Pulmonic Valve The pulmonic valve is not well visualized. There is no pulmonic valvular stenosis. Moderate pulmonic valvular regurgitation. Great Vessels The aortic root is normal size. Pericardium/Pleura There is no pericardial effusion. Interpretation Summary There is moderate concentric left ventricular hypertrophy. The left ventricular ejection fraction is normal. The right atrium is moderately dilated. The left atrium is moderately dilated. There is mild tricuspid regurgitation. Right ventricular systolic pressure is normal. The aortic valve is not well visualized. There is moderate aortic valve thickening. There is moderate aortic sclerosis.; Regional wall motion abnormalities cannot be excluded due to limited visualization. There is mild mitral regurgitation. MD Antony Garcia 04/24/2018 03:21 PM
--- NOTE | 2018-04-24 16:35 | PN ---
Progress Note, Physician Chief Complaint: AWAKE ALERT EVENTS AND NOTES REVIEWED - Current Medication List Current Medications: Active Medications Acetaminophen (Tylenol -) 650 mg PO Q6H PRN PRN Reason: PAIN OR FEVER Apixaban (Eliquis -) 5 mg PO BID [facility] Last Admin: 04/24/18 09:51 Dose: 5 mg Atorvastatin Calcium (Lipitor -) 10 mg PO HS [facility] Last Admin: 04/23/18 21:52 Dose: 10 mg Budesonide/Formoterol Fumarate (Symbicort 160/4.5mcg -) 2 puff IH BID [facility] Last Admin: 04/24/18 09:51 Dose: 2 puff Levothyroxine Sodium (Synthroid -) 250 mcg PO DAILY@0700 [facility] Last Admin: 04/24/18 06:32 Dose: 250 mcg - Objective Vital Signs: Vital Signs Temperature 97.9 F 04/24/18 14:30 Pulse Rate 52 L 04/24/18 14:30 Respiratory Rate 18 04/24/18 14:30 Blood Pressure 114/64 04/24/18 14:30 O2 Sat by Pulse Oximetry (%) 92 L 04/24/18 09:00 Constitutional: Yes: No Distress Eyes: Yes: WNL HENT: Yes: WNL Neck: Yes: WNL Cardiovascular: Yes: Pulse Irregular Respiratory: Yes: WNL Gastrointestinal: Yes: WNL Genitourinary: Yes: WNL Musculoskeletal: Yes: Muscle Weakness Extremities: Yes: WNL Edema: No Peripheral Pulses WNL: Yes Integumentary: Yes: WNL Wound/Incision: Yes: Clean/Dry Neurological: Yes: WNL ...Motor Strength: WNL Psychiatric: Yes: WNL Labs: CBC, BMP 04/24/18 06:00 04/24/18 06:00 Problem List - Problems (1) Hypothyroidism Code(s): E03.9 - HYPOTHYROIDISM, UNSPECIFIED Qualifiers: Hypothyroidism type: unspecified Qualified Code(s): E03.9 - Hypothyroidism , unspecified (2) Orthostatic hypotension Code(s): I95.1 - ORTHOSTATIC HYPOTENSION (3) BPH (benign prostatic hypertrophy) Code(s): N40.0 - BENIGN PROSTATIC HYPERPLASIA WITHOUT LOWER URINRY TRACT SYMP Qualifiers: Lower urinary tract symptom presence: symptoms absent Qualified Code(s): N40.0 - Benign prostatic hyperplasia without lower urinary tract symptoms (4) CAD (coronary artery disease) Code(s): I25.10 - ATHSCL HEART DISEASE OF [place] CORONARY ARTERY W/O ANG PCTRS Qualifiers: Coronary Disease-Associated Artery/Lesion type: unspecified vessel or lesion type [place] vs. transplanted heart: unspecified whether [place] or transplanted heart Associated angina: with unspecified angina Qualified Code (s): I25.119 - Atherosclerotic heart disease of [place] coronary artery with unspecified angina pectoris (5) COPD (chronic obstructive pulmonary disease) Code(s): J44.9 - CHRONIC OBSTRUCTIVE PULMONARY DISEASE, UNSPECIFIED Qualifiers: COPD type: emphysema (6) Chest pain Code(s): R07.9 - CHEST PAIN, UNSPECIFIED Qualifiers: Chest pain type: unspecified Qualified Code(s): R07.9 - Chest pain, unspecified (7) Sinus bradycardia Code(s): R00.1 - BRADYCARDIA, UNSPECIFIED Assessment/Plan TSH 89 WHICH INDICATES SEVERE HYPOTHYROIDIS WILL ADJUST SYNTHROID 250MCG DAILY ENDOCRINE CONSULT CHECK TELE MONITOR PATIENT'S HEART RATE WILL CORRECT THYROID LEVEL IMPROVES CHECK ECHO/CAROTID PT EVAL NEURO CHECKS FALL RISKS CARDIO EVAL ON ELIQUIS STOP ASA DC PLANNING AM
[2018-04-24] MEDS ORDERED: ATORVASTATIN CA 40 MG TABLET (FP) PO SCH (22:00)
[2018-04-25] MEDS: LEVOTHYROXINE NA 125 MCG TABLET (FP) PO SCH (06:11)
[2018-04-25] MEDS ORDERED: PT OWN MED DRAWER 7, Y5N ONE (09:37)
[2018-04-25] MEDS: BUDESONIDE/FORMETEROL FUMARATE 160/4.5 mcg INHALER IH SCH (10:12)
[2018-04-25] MEDS: APIXABAN 5 MG TABLET PO SCH (10:13)
--- NOTE | 2018-04-25 10:29 | DS ---
Physical Examination Vital Signs: Vital Signs Temperature 97.7 F 04/25/18 06:00 Pulse Rate 26 L 04/25/18 06:00 Respiratory Rate 18 04/25/18 08:59 Blood Pressure 131/70 04/25/18 06:00 O2 Sat by Pulse Oximetry (%) 92 L 04/25/18 08:59 Constitutional: Yes: No Distress Eyes: Yes: WNL HENT: Yes: WNL Neck: Yes: WNL Cardiovascular: Yes: Pulse Irregular Respiratory: Yes: WNL Gastrointestinal: Yes: WNL Renal/: Yes: WNL Musculoskeletal: Yes: WNL Extremities: Yes: WNL Edema: No Peripheral Pulses WNL: Yes Integumentary: Yes: WNL Wound/Incision: Yes: Clean/Dry Neurological: Yes: WNL ...Motor Strength: WNL Psychiatric: Yes: WNL Labs: CBC, BMP 04/24/18 06:00 04/24/18 06:00 Discharge Summary Reason For Visit: ORTHOSTATIC HYPOTENSION,HYPOTHYROIDISM Current Active Problems Hypothyroidism (Acute) Orthostatic hypotension (Acute) AFIB Procedures: Principal: CT HEAD Hospital Course: ADMITTED WORKED UP FOR SYNCOPE, PATIENT HAS SEVERE HYPOTHYROID, WILL NEED SYNTHROID, AFIB ON ELIQUIS NOW Condition: Good - Instructions Diet, Activity, Other Instructions: SEE DR ANTHONY IN 3 WEEKS FOR F/U April Disposition: VNS/HOME HEALTH CARE - Home Medications Comprehensive Discharge Medication List: Ambulatory Orders Ascorbic Acid [Vitamin C] 500 mg PO DAILY 12/25/12 Aspirin Coated [Ecotrin -] 81 mg PO HS 12/25/12 Mag Carb/Aluminum Hydrox/Algin [Gaviscon Liquid] 30 ml PO PRN PRN #0 oral.susp 05/03/16 Multivit-Min/FA/Lycopen/Lutein [Centrum Silver Men Tablet] 1 each PO DAILY 10/24 Acetaminophen [Tylenol .Regular Strength -] 650 mg PO Q4H PRN #0 tablet Budesonide/Formeterol Fumarate [SYMBICORT 160/4.5mcg -] 2 puff IH BID PRN Pantoprazole Sodium 40 mg PO HS PRN 04/23/18 Acetaminophen [Tylenol .Regular Strength -] 650 mg PO Q6H PRN tablet 04/25/18 Apixaban [Eliquis -] 5 mg PO BID #60 tablet 04/25/18 Aspirin Coated [Ecotrin -] 81 mg PO DAILY tablet.ec 04/25/18 Atorvastatin Ca [Lipitor] 40 mg PO HS #30 tablet 04/25/18 Budesonide/Formeterol Fumarate [SYMBICORT 160/4.5mcg -] 2 puff IH BID inhaler 04/25/18 Levothyroxine [Synthroid -] 250 mcg PO DAILY@0700 #3 tablet 04/25/18
[2018-04-25 10:50] VITALS: BP 102/66; PULSE 59; TEMP 97.5
--- NOTE | 2018-04-25 10:59 | PN ---
Progress Note (short form) - Note Progress Note: Chief Complaint: presyncope History of Present Illness: feels back to normal. no chest pain, palps, dizzy, lightheadedness, dyspnea Home Medications Medication Instructions Recorded Ascorbic Acid [Vitamin C] 500 mg PO DAILY 12/25/12 Aspirin Coated [Ecotrin -] 81 mg PO HS 12/25/12 Mag Carb/Aluminum Hydrox/Algin 30 ml PO PRN PRN #0 oral.susp 05/03/16 [Gaviscon Liquid] Multivit-Min/FA/Lycopen/Lutein 1 each PO DAILY 10/24/16 [Centrum Silver Men Tablet] Acetaminophen [Tylenol .Regular 650 mg PO Q4H PRN #0 tablet 02/20/17 Strength -] Budesonide/Formeterol Fumarate 2 puff IH BID PRN 04/23/18 [SYMBICORT 160/4.5mcg -] Pantoprazole Sodium 40 mg PO HS PRN 04/23/18 Acetaminophen [Tylenol .Regular 650 mg PO Q6H PRN tablet 04/25/18 Strength -] Apixaban [Eliquis -] 5 mg PO BID #60 tablet 04/25/18 Aspirin Coated [Ecotrin -] 81 mg PO DAILY tablet.ec 04/25/18 Atorvastatin Ca [Lipitor] 40 mg PO HS #30 tablet 04/25/18 Budesonide/Formeterol Fumarate 2 puff IH BID inhaler 04/25/18 [SYMBICORT 160/4.5mcg -] Levothyroxine [Synthroid -] 250 mcg PO DAILY@0700 #3 tablet 04/25/18 Vital Signs: Vital Signs Period Temp Pulse Resp BP Sys/Sheldon Pulse Ox Last 24 Hr 97.2 F-98.0 F 26-60 16-18 102-131/49-70 92-92 Constitutional: Yes: No Distress, Obese Eyes: No: Sclera Icterus Respiratory: Yes: CTA Bilaterally. No: Accessory Muscle Use, Rales, Wheezes Gastrointestinal: Yes: Normal Bowel Sounds. No: Distention, Hepatomegaly, Palpable Mass, Tenderness Cardiovascular: Yes: Pulse Irregular JVD: No Heart Sounds: Yes: S1, S2. No: Gallop Murmur: Yes: Systolic Murmur (soft heart sounds. syst murmur rusb). No: Diastolic Murmur Extremities: No: Cool, Cyanosis Edema: No Integumentary: No: Jaundice Neurological: Yes: Alert, Oriented (x3) Psychiatric: No: Agitated CBC, BMP 04/24/18 06:00 04/24/18 06:00 Assessment/Plan ECG: afib slow conduction (HR 50); nonspecific ST-Ts lateral leads-- all findings new vs prior 01/2017 CXR: interstitial findings unchanged vs prior. no infiltrate, effusion carotid doppler: no hemodynamically significant stenosis tele: afib slow rate when sleeping echo 03/2018: nl lvef, mod lvh, rv tds, theresa, mild mr, mild tr, mod pr, nl rvsp presyncope: -episode occurred when in upright position at home -h/o asymptomatic sinus bradycardia on prior admit here (2015), tsh elevated at that time. AF with low-normal HR here -TSH very high presently (80)--? if presyncope due to bradyarrhythmia. -suspect orthostatic hypotension due to combination of vol depletion/hypothyroid , given pt bp's soft here with orthostatic drop in ER (96 supine to 87 standing) , sx's occurred in standing position and labs appear slightly prerenal -s/p 1500 cc IVF in ER. bp improved. -encourage po intake (pt aware). defer further IVF -monitor orthostatics. -thyroid optimization per pmd, endocrine -no pathological conduction system dz at present, no indication for PPM--cont tele monitoring afib: -new afib noted on ekg here, HR slow despite no AVN blockers -habitus suspicious for ELIAS --rec PSG as outpt -expect HR to normalize as becomes euthyroid -CHADS VASC = 3. denies h/o GIB/PUD or falls. AC warranted as risk of stroke is > risk of bleeding here. rec eliquis 5mg bid to start h/o CAD, prior stent: -last stress test 2015 at outside cardio, reportedly normal per dr vivar notes -ecg no ischemic changes. trop neg x 1--repeat ordered -doubt acute coronary syndrome clinically -cont home statin. -stop aspirin as pt starting NOAC agent and has chronic, stable CAD with no recent PCI (last stent 6-7 yrs ago per pt) cardiac jasso stable for dc , outpt f/u
== END 2018-04-25 10:45 | disposition home health service (06) | DRG 312 ==
LOC: JER 08:57 → JERBED 11:13 → J4S 14:22
PROVIDERS: ADMIT Family Medicine; ATTEND Family Medicine
DX: I95.1 Orthostatic hypotension (principal); I25.10 Atherosclerotic heart disease of native coronary artery without angina pectoris; J44.9 Chronic obstructive pulmonary disease, unspecified; N40.0 Benign prostatic hyperplasia without lower urinary tract symptoms; E03.9 Hypothyroidism, unspecified; R00.1 Bradycardia, unspecified; R47.81 Slurred speech; R07.89 Other chest pain; K21.9 Gastro-esophageal reflux disease without esophagitis; K22.2 Esophageal obstruction; G25.81 Restless legs syndrome; K57.90 Diverticulosis of intestine, part unspecified, without perforation or abscess without bleeding; G62.9 Polyneuropathy, unspecified; K63.5 Polyp of colon; E86.1 Hypovolemia; G47.30 Sleep apnea, unspecified; Z87.891 Personal history of nicotine dependence; Z95.5 Presence of coronary angioplasty implant and graft
CPT/HCPCS: 36415; 71046-TC-FY; 80053; 80061; 82550; 82553; 83036; 83721; 84439; 84443; 84484; 85025; 85027; 85651; 86593; 93005; 93010; 93306-TC; 93880-TC; 97116-GP; 97161-GP; 99283-25; J7030

== ENCOUNTER 2019-11-25 12:48 | Inpatient (IN) | payer OTHER ==
--- NOTE | 2019-11-25 13:46 | PDOC ---
History of Present Illness - General Chief Complaint: Irregular Heart Beat Stated Complaint: SENT BY DR. ANTHONY / SOB Time Seen by Provider: 11/25/19 13:16 History Source: Patient Exam Limitations: No Limitations - History of Present Illness Initial Comments: 11/25/19 13:45 Primo Pavon is an 79M with PMH HTN, HLD, COPD, CO, TIA, hypothyroidism, AFIB with slow conduction on Eliquis, presenting with acute on chronic lightheadedness and symptomatic bradycardia. Patient reports last week was walking 10 feet to take out his trash, began to feel progressively more lightheaded and weak in his body, had to rest for a few minutes against a nearby fence and his door in order to be able to get back into his house, lost control of his bladder before resting on the group. Denies LOC or head injury, felt better after some rest at home. This is third episode in the last few years, last time in 2018 after walking uphill while playing golf, similar weakness and lightheadedness, found to be hypothyroid and to have AFIB with slow conduction per Dr. Puente in 2018. Has been consistently taking Synthroid since. Evaluated in Dr. Anthony office today, referred to ED for bradycardia, admit to tele with consult to Dr. Gómez. Currently feels asymptomatic, denies any recent palpitations but has had SOB with exertion. Denies fever, chills, N/V/D, abd pain, or thyroid symptoms. PMH HTN, CAD s/p stenting, TIA, and COPD on albuterol and inhaled steroids but no home O2. Non-smoker for the last 40 years. Social alcohol. Denies illegal drug use. Past History - Medical History Allergies/Adverse Reactions: Allergies Allergy/AdvReac Type Severity Reaction Status Date / Time No Known Drug Allergies Allergy Verified 11/25/19 12:55 Home Medications: Ambulatory Orders Ascorbic Acid [Vitamin C] 500 mg PO DAILY 12/25/12 Mag Carb/Aluminum Hydrox/Algin [Gaviscon Liquid] 30 ml PO PRN PRN #0 oral.susp 05/03/16 Multivit-Min/FA/Lycopen/Lutein [Centrum Silver Men Tablet] 1 each PO DAILY 10/24/16 Acetaminophen [Tylenol .Regular Strength -] 650 mg PO Q6H PRN tablet 04/25/18 Apixaban [Eliquis -] 5 mg PO BID #60 tablet 04/25/18 Budesonide/Formeterol Fumarate [SYMBICORT 160/4.5mcg -] 2 puff IH BID inhaler 04/25/18 Albuterol Sulfate Inhaler - [Ventolin HFA Inhaler -] 2 inhaler IN PRN 11/25/19 Atorvastatin Ca [Lipitor] 20 mg PO HS 11/25/19 Levothyroxine [Synthroid -] 150 mcg PO DAILY 11/25/19 Anemia: No Asthma: No Cancer: No Cardiac Disorders: Yes (ASHD) CVA: No COPD: Yes CHF: No Dementia: No Diabetes: No GI Disorders: Yes (GERD W/ SCHATZKI RING,, COLON POLYPS,DIVERTICULOSIS) Disorders: Yes (BPH) HTN: Yes Hypercholesterolemia: Yes (HYPERLIPIDEMIA) Kidney Stones: Yes Liver Disease: No Seizures: No Thyroid Disease: Yes (HYPOTHYROID) - Surgical History Abdominal Surgery: No Appendectomy: No Cardiac Surgery: No Cholecystectomy: No Lung Surgery: Yes (UPPER LUNG BIOPSY) Neurologic Surgery: No Orthopedic Surgery: No - Immunization History Immunization Up to Date: Yes - Psycho-Social/Smoking History Smoking History: Former smoker Have you smoked in the past 12 months: No If you are a former smoker, when did you quit?: 40yrs ago Information on smoking cessation initiated: No - Substance Abuse Hx (Audit-C & DAST Scrn) How often the patient has a drink containing alcohol: Monthly or less Number of drinks the patient has on a typical day: 1 or 2 How often the patient has six or more drinks on one occasion: Never Score: In Men: 4 or > Positive; In Women: 3 or > Positive: 1 Screen Result (Pos requires Nsg. Audit-10AR): Negative In the last yr the pt used illegal drug/Rx for NonMed reason: No Score: Yes response is considered Positive: 0 Screen Result (Positive result requires Nsg. DAST-10): Negative Review of Systems - Review of Systems Able to Perform ROS?: Yes Constitutional: Yes: Weakness. No: Chills, Fever HEENTM: No: Symptoms Reported Respiratory: Yes: SOB with Exertion. No: Cough, Shortness of Breath Cardiac (ROS): Yes: Lightheadedness. No: Chest Pain ABD/GI: No: Constipated, Diarrhea, Nausea, Poor Appetite, Poor Fluid Intake, Vomiting : No: Symptoms Reported Musculoskeletal: No: Symptoms Reported Integumentary: No: Symptoms Reported Neurological: Yes: Weakness, Unsteady Gait Endocrine: No: Symptoms Reported Hematologic/Lymphatic: No: Symptoms Reported *Physical Exam - Vital Signs Last Vital Signs Temp Pulse Resp BP Pulse Ox 97.7 F 48 L 18 107/47 L 96 11/25/19 12:55 11/25/19 12:55 11/25/19 12:55 11/25/19 12:55 11/25/19 12:55 - Physical Exam General Appearance: Yes: Nourished, Appropriately Dressed. No: Apparent Distress HEENT: positive: EOMI, DANIKA, Normal Voice, Symmetrical, Pharynx Normal. negative: Scleral Icterus (R), Scleral Icterus (L), Pharyngeal Erythema, Tonsillar Exudate, Tonsillar Erythema Neck: positive: Trachea midline, Normal Thyroid, Supple. negative: Tender, Rigid, Lymphadenopathy (R), Lymphadenopathy (L), Tender lateral, Tender midline Respiratory/Chest: positive: Lungs Clear, Normal Breath Sounds. negative: Chest Tender, Respiratory Distress, Accessory Muscle Use, Crackles, Rales, Rhonchi, Stridor, Wheezing Cardiovascular: positive: Regular Rhythm, Regular Rate Gastrointestinal/Abdominal: positive: Normal Bowel Sounds, Flat, Soft. negative: Tender, Organomegaly, Guarding, Rebound Musculoskeletal: positive: Normal Inspection Extremity: positive: Normal Capillary Refill, Normal Inspection, Normal Range of Motion. negative: Tender, Coldness, Pedal Edema, Swelling, Calf Tenderness Integumentary: positive: Normal Color, Dry, Warm Neurologic: positive: Fully Oriented, Alert, Normal Mood/Affect, Normal Respo nse, Motor Strength 5/5 ED Treatment Course - LABORATORY CBC & Chemistry Diagram: 11/25/19 14:21 11/25/19 14:21 Medical Decision Making - Medical Decision Making 11/25/19 14:36 Patient has known history of AFIB with slow conduction, TIA, and CAD s/p stenting, with multiple episodes of lightheadedness and weakness, found to have bradycardia in office today, referred to ED for admission to tele and further cardiology evaluation. VSS, exam unremarkable. Getting baseline ECG, CMP, CBC, CP, CXR, BNP, Coags and cardiac monitoring. Given bradycardia, AFIB with slow conduction, and pre-syncopal episodes, may be a good candidate for a pacemaker. CXR unremarkable. ECG shows AFIB with slow ventricular response, HR 47, QRS 98,m QTc 412, no LORRI/D or concerning ischemic changes. Plan to admit to tele under Dr. Anthony with Eugenei consult. 11/25/19 16:55 Discussed case with Douglas Velasco, accepted to tele under Dr. Anthony. Dr. Anthony in ED, aware of patient. Discharge - Discharge Information Problems reviewed: Yes Clinical Impression/Diagnosis: Symptomatic bradycardia, Near syncope Atrial fibrillation Qualifiers: Atrial fibrillation type: unspecified Qualified Code(s): I48.91 - Unspecified atrial fibrillation Condition: Fair - Admission Yes - Follow up/Referral Referrals: Rachael Anthony MD [Primary Care Provider] - - Patient Discharge Instructions - Post Discharge Activity
--- NOTE | 2019-11-25 14:17 | PDOC ---
Attending Attestation - Resident Resident Name: Nolberto Oconnor - ED Attending Attestation I have performed the following: I have examined & evaluated the patient, The case was reviewed & discussed with the resident, I agree w/resident's findings & plan - HPI HPI: 11/25/19 14:08 79y/o M h/o CAD/stents, afib on [facility] with h/o slow conduction sent from Dr. Gan's office after several episodes of post-exertional light-headedness and near syncope. found to have bradycardia with afib in office, referred for tele admission - Physicial Exam PE: 11/25/19 14:17 bp normal, bradycardia noted alert, nad heart irregular bradycardia, 2+ distal pulses lungs clear abd benign no edema - Medical Decision Making 11/25/19 14:17 79y/o M h/o afib with slow conduction p/w near syncope concerning for symptomatic bradycardia v new valvular disease. BP normal here, no pericardial effusion on pocus. ekg shows afib with bradycardia and no acute ischemic changes labs, cxr on [facility] dr. vivar consulted admit tele 11/25/19 16:22 lytes wnl, trop negative bp remains stable cards consulted, admitted to tele Heart Score/ECG Review #1 ECG reviewed & interpreted by me at: 13:03 Compared to previous ECG there are: No significant change (c/w EKG from office on 11/24) 11/25/19 14:19 afib at 52, qtc 440, no acute ischemic changes #2 ECG reviewed & interpreted by me at: 14:09 11/25/19 14:20 afib at 47. narrow complex, qtc 412, no acute ischemic changes Discharge - Discharge Information Problems reviewed: Yes Clinical Impression/Diagnosis: Symptomatic bradycardia, Near syncope Atrial fibrillation Qualifiers: Atrial fibrillation type: unspecified Qualified Code(s): I48.91 - Unspecified atrial fibrillation Condition: Fair - Follow up/Referral Referrals: Rachael Gan MD [Primary Care Provider] - - Patient Discharge Instructions - Post Discharge Activity
[2019-11-25 14:44] LABS: BASO % 0.5 % (0-2.0); EOS % 15.8 % (0-4.5); HEMATOCRIT 36.7 % (35.4-49); HEMOGLOBIN 11.9 GM/dL (11.7-16.9); LYMPH % 19.5 % (8-40); MCH 30.2 pg (25.7-33.7); MCHC 32.5 g/dl (32.0-35.9); MEAN CELL VOLUME 93.1 fl (80-96); MEAN PLT VOLUME 6.9 fl (7.5-11.1); MONO % 9.5 % (3.8-10.2); NEUT % 54.7 % (42.8-82.8); PLATELET COUNT 207 K/MM3 (134-434); RBC 3.94 M/mm3 (4.00-5.60); RDW 15.7 % (11.9-15.9); WHITE BLOOD COUNT 4.5 K/mm3 (4.0-10.0)
[2019-11-25 14:52] LABS: INR 1.38 (0.83-1.09); PROTHROMBIN TIME (PATIENT) 16.3 SEC (9.7-13.0)
[2019-11-25 14:55] LABS: ACTIVATED PTT 35.5 SECONDS (25.2-36.5)
[2019-11-25 15:30] LABS: ALBUMIN 3.3 g/dl (3.4-5.0); ALK PHOS 110 U/L (45-117); ANION GAP 6 MMOL/L (8-16); BILIRUBIN,TOTAL 0.6 mg/dL (0.2-1); CALCIUM 8.8 mg/dL (8.5-10.1); CHLORIDE 111 mmol/L (98-107); CO2 26 mmol/L (21-32); GLUCOSE,RANDOM 101 mg/dL (74-106); POTASSIUM 4.7 mmol/L (3.5-5.1); SGOT/AST 21 U/L (15-37); SGPT/ALT 23 U/L (13-61); SODIUM 143 mmol/L (136-145); TOT PROT 6.6 g/dl (6.4-8.2)
[2019-11-25 15:31] LABS: BLOOD UREA NITROGEN 14.1 mg/dL (7-18); CREATININE 0.9 mg/dL (0.55-1.3)
--- NOTE | 2019-11-25 16:04 | HP ---
Admitting History and Physical - Primary Care Physician PCP: Rachael Gan - Admission Chief Complaint: BRADYCARDIA/SYNCOPE History of Present Illness: SENT FROM MY OFFICE WITH ORTHOSTATIC HYPOTENSION, SYNCOPE AT HOME, BRADYCARDIA AFIB ON EKG. NO LOC NO CHEST PAIN DENIES SOB HOWEVER AT HOME WHEN HE HAD THE SYNCOPAL EPISODE HE C/O DYSPNEA AND DIZZINESS. History Source: Patient - Past Medical History Cardiovascular: Yes: CAD, HTN, Hyperlipdemia Pulmonary: Yes: Sleep Apnea Gastrointestinal: Yes: GERD Renal/: Yes: BPH Endocrine: Yes: Hypothyroidism - Past Surgical History Past Surgical History: Yes: Stent - Smoking History Smoking history: Former smoker Have you smoked in the past 12 months: No If you are a former smoker, when did you quit?: 40yrs ago - Alcohol/Substance Use Hx Alcohol Use: Yes (SOCIAL) History of Substance Use: reports: None - Social History ADL: Independent History of Recent Travel: Yes Home Medications - Allergies Allergies/Adverse Reactions: Allergies Allergy/AdvReac Type Severity Reaction Status Date / Time No Known Drug Allergies Allergy Verified 11/25/19 12:55 - Home Medications Home Medications: Ambulatory Orders Ascorbic Acid [Vitamin C] 500 mg PO DAILY 12/25/12 Mag Carb/Aluminum Hydrox/Algin [Gaviscon Liquid] 30 ml PO PRN PRN #0 oral.susp 05/03/16 Multivit-Min/FA/Lycopen/Lutein [Centrum Silver Men Tablet] 1 each PO DAILY 10/24/16 Acetaminophen [Tylenol .Regular Strength -] 650 mg PO Q6H PRN tablet 04/25/18 Apixaban [Eliquis -] 5 mg PO BID #60 tablet 04/25/18 Budesonide/Formeterol Fumarate [SYMBICORT 160/4.5mcg -] 2 puff IH BID inhaler 04/25/18 Albuterol Sulfate Inhaler - [Ventolin HFA Inhaler -] 2 inhaler IN PRN 11/25/19 Atorvastatin Ca [Lipitor] 20 mg PO HS 11/25/19 Levothyroxine [Synthroid -] 150 mcg PO DAILY 11/25/19 Review of Systems - Review of Systems Constitutional: reports: Weakness Cardiovascular: reports: Palpitations, Shortness of Breath Respiratory: reports: Cough Integumentary: reports: No Symptoms Neurological: reports: Dizziness, Weakness Physical Examination Vital Signs: Vital Signs Temperature 97.9 F 11/25/19 14:00 Pulse Rate 52 L 11/25/19 14:00 Respiratory Rate 15 11/25/19 14:00 Blood Pressure 130/60 11/25/19 14:00 O2 Sat by Pulse Oximetry (%) 97 11/25/19 14:00 Constitutional: Yes: Mild Distress Cardiovascular: Yes: Bradycardia, Pulse Irregular Respiratory: Yes: Diminished Gastrointestinal: Yes: Abdomen, Obese Musculoskeletal: Yes: Muscle Weakness Edema: Yes Neurological: Yes: Unsteady Gait Labs: CBC, BMP 11/25/19 14:21 11/25/19 14:21 Problem List - Problems (1) Atrial fibrillation Code(s): I48.91 - UNSPECIFIED ATRIAL FIBRILLATION Qualifiers: Atrial fibrillation type: unspecified Qualified Code(s): I48.91 - Unspecified atrial fibrillation (2) Near syncope Code(s): R55 - SYNCOPE AND COLLAPSE (3) Symptomatic bradycardia Code(s): R00.1 - BRADYCARDIA, UNSPECIFIED (4) BPH (benign prostatic hypertrophy) Code(s): N40.0 - BENIGN PROSTATIC HYPERPLASIA WITHOUT LOWER URINRY TRACT SYMP Qualifiers: Lower urinary tract symptom presence: symptoms absent Qualified Code(s): N40.0 - Benign prostatic hyperplasia without lower urinary tract symptoms (5) CAD (coronary artery disease) Code(s): I25.10 - ATHSCL HEART DISEASE OF [place] CORONARY ARTERY W/O ANG PCTRS Qualifiers: Coronary Disease-Associated Artery/Lesion type: unspecified vessel or lesion type [place] vs. transplanted heart: unspecified whether [place] or transplanted heart Associated angina: with unspecified angina Qualified Code(s): I25.119 - Atherosclerotic heart disease of [place] coronary artery with unspecified angina pectoris (6) COPD (chronic obstructive pulmonary disease) Code(s): J44.9 - CHRONIC OBSTRUCTIVE PULMONARY DISEASE, UNSPECIFIED Qualifiers: COPD type: emphysema (7) Hypothyroidism Code(s): E03.9 - HYPOTHYROIDISM, UNSPECIFIED Qualifiers: Hypothyroidism type: unspecified Qualified Code(s): E03.9 - Hypothyroidism, unspecified Assessment/Plan SYNCOPE W/UP PACEMAKER PLACEMENT WORKUP CHECK LABS FALL RISKS PT EVAL CARDIOLOGY DR CALLAWAY CALLED
[2019-11-25] MEDS ORDERED: ALBUTEROL SO4 2.5/IPRATROPIUM 0.5 INH SOL 3 ML VIAL.NEB. NEB PRN (16:06)
[2019-11-25] MEDS ORDERED: ACETAMINOPHEN 325 MG TABLET (FP) PO PRN (16:06)
[2019-11-25] MEDS ORDERED: ACETAMINOPHEN 325 MG TABLET (FP) ONE (20:54)
[2019-11-25] MEDS ORDERED: ATORVASTATIN CA 20 MG TABLET (FP) ONE (20:54)
[2019-11-25] MEDS ORDERED: APIXABAN 5 MG TABLET ONE (20:54)
[2019-11-25] MEDS: APIXABAN 5 MG TABLET PO SCH (22:43)
[2019-11-25] MEDS: ATORVASTATIN CA 20 MG TABLET (FP) PO SCH (22:43)
[2019-11-25] MEDS: BUDESONIDE/FORMETEROL FUMARATE 160/4.5 mcg INHALER IH SCH (23:54)
[2019-11-26 02:23] VITALS: BMI 28.2
[2019-11-26] MEDS ORDERED: LEVOTHYROXINE NA 150 MCG TABLET PO SCH (07:00)
--- NOTE | 2019-11-26 07:59 | PN ---
Progress Note (short form) - Note Progress Note: PULMONARY CONSULTATION DICTATED 11/26/19 IMP SYNCOPE/DYSPNEA BRADYCARDIA ORTOSTATIC HYPOTENSION ASHD S/P STENTS COPD ELIAS NOT COMPLIANT WITH CPAP GERD HYPOTHYROID AFIB RUL NODULE PLAN TELEMETRY MONITORING O2 INHALED BRONCHODILATORS CARDIAC W/U AC DR HENRY Problem List - Problems (1) Atrial fibrillation Code(s): I48.91 - UNSPECIFIED ATRIAL FIBRILLATION Qualifiers: Atrial fibrillation type: unspecified Qualified Code(s): I48.91 - Unspe cified atrial fibrillation (2) Near syncope Code(s): R55 - SYNCOPE AND COLLAPSE (3) Symptomatic bradycardia Code(s): R00.1 - BRADYCARDIA, UNSPECIFIED (4) CAD (coronary artery disease) Code(s): I25.10 - ATHSCL HEART DISEASE OF [place] CORONARY ARTERY W/O ANG PCTRS Qualifiers: Coronary Disease-Associated Artery/Lesion type: unspecified vessel or lesion type [place] vs. transplanted heart: unspecified whether [place] or transplanted heart Associated angina: with unspecified angina Qualified Code(s): I25.119 - Atherosclerotic heart disease of [place] coronary artery with unspecified angina pectoris (5) COPD (chronic obstructive pulmonary disease) Code(s): J44.9 - CHRONIC OBSTRUCTIVE PULMONARY DISEASE, UNSPECIFIED Qualifiers: COPD type: emphysema (6) Hyperlipidemia Code(s): E78.5 - HYPERLIPIDEMIA, UNSPECIFIED Qualifiers: Hyperlipidemia type: unspecified Qualified Code(s): E78.5 - Hyperlipidemia, unspecified (7) Hypothyroidism Code(s): E03.9 - HYPOTHYROIDISM, UNSPECIFIED Qualifiers: Hypothyroidism type: unspecified Qualified Code(s): E03.9 - Hypothyroidism, unspecified (8) Orthostatic hypotension Code(s): I95.1 - ORTHOSTATIC HYPOTENSION (9) Pulmonary nodule Code(s): R91.1 - SOLITARY PULMONARY NODULE
[2019-11-26] MEDS: APIXABAN 5 MG TABLET PO SCH ×2 (09:27→21:56)
[2019-11-26] MEDS: BUDESONIDE/FORMETEROL FUMARATE 160/4.5 mcg INHALER IH SCH ×2 (09:27→21:59)
--- NOTE | 2019-11-26 09:51 | PN ---
Progress Note, Physician - Current Medication List Current Medications: Active Medications Acetaminophen (Tylenol -) 650 mg PO Q6H PRN PRN Reason: FEVER Last Admin: 11/25/19 22:43 Dose: 650 mg Documented by: Albuterol/Ipratropium (Duoneb -) 1 amp NEB Q6H PRN PRN Reason: SHORTNESS OF BREATH Apixaban (Eliquis -) 5 mg PO BID [facility] Last Admin: 11/26/19 09:27 Dose: 5 mg Documented by: Atorvastatin Calcium (Lipitor -) 20 mg PO HS [facility] Last Admin: 11/25/19 22:43 Dose: 20 mg Documented by: Budesonide/Formoterol Fumarate (Symbicort 160/4.5mcg -) 2 puff IH BID [facility] Last Admin: 11/26/19 09:27 Dose: 2 puff Documented by: Levothyroxine Sodium (Synthroid -) 150 mcg PO DAILY@0700 [facility] Last Admin: 11/26/19 06:11 Dose: 150 mcg Documented by: - Objective Vital Signs: Vital Signs Temperature 97.5 F L 11/26/19 08:35 Pulse Rate 50 L 11/26/19 08:35 Respiratory Rate 18 11/26/19 08:42 Blood Pressure 122/90 11/26/19 08:35 O2 Sat by Pulse Oximetry (%) 94 L 11/26/19 02:45 Cardiovascular: Yes: Bradycardia, S1, S2 Respiratory: Yes: Regular, CTA Bilaterally Gastrointestinal: Yes: Normal Bowel Sounds, Soft. No: Tenderness Edema: No Labs: CBC, BMP 11/25/19 14:21 11/25/19 14:21 INR, PTT INR 1.38 (0.83-1.09) H 11/25/19 14:21 Problem List - Problems (1) Atrial fibrillation Assessment/Plan: with slow vntricular response cardio to asses need for pacemaker Code(s): I48.91 - UNSPECIFIED ATRIAL FIBRILLATION Qualifiers: Atrial fibrillation type: unspecified Qualified Code(s): I48.91 - Unspecified atrial fibrillation (2) Near syncope Assessment/Plan: maybe due to above Code(s): R55 - SYNCOPE AND COLLAPSE (3) COPD (chronic obstructive pulmonary disease) Assessment/Plan: pulm on board Code(s): J44.9 - CHRONIC OBSTRUCTIVE PULMONARY DISEASE, UNSPECIFIED Qualifiers: COPD type: emphysema
--- NOTE | 2019-11-26 10:38 | EKG ---
Test Reason : Blood Pressure : / mmHG Vent. Rate : 047 BPM Atrial Rate : 046 BPM P-R Int : 000 ms QRS Dur : 098 ms QT Int : 466 ms P-R-T Axes : 000 037 036 degrees QTc Int : 412 ms ATRIAL FIBRILLATION WITH SLOW VENTRICULAR RESPONSE ABNORMAL ECG WHEN COMPARED WITH ECG OF 23-APR-2018 09:12, NONSPECIFIC T WAVE ABNORMALITY, IMPROVED IN INFERIOR LEADS NONSPECIFIC T WAVE ABNORMALITY NO LONGER EVIDENT IN LATERAL LEADS Confirmed by Anibal Hernandez MD ([id number]) on 11/26/2019 10:37:14 AM Referred By: Confirmed By:Anibal Hernandez MD
--- NOTE | 2019-11-26 10:38 | EKG ---
Test Reason : Blood Pressure : / mmHG Vent. Rate : 052 BPM Atrial Rate : 300 BPM P-R Int : 000 ms QRS Dur : 098 ms QT Int : 474 ms P-R-T Axes : 000 047 044 degrees QTc Int : 440 ms POOR DATA QUALITY, INTERPRETATION MAY BE ADVERSELY AFFECTED ATRIAL FIBRILLATION WITH SLOW VENTRICULAR RESPONSE NONSPECIFIC ST ABNORMALITY ABNORMAL ECG Confirmed by Anibal Hernandez MD ([id number]) on 11/26/2019 10:37:48 AM Referred By: Confirmed By:Ainbal Hernandez MD
--- NOTE | 2019-11-26 13:45 | CON.CARD ---
Cardiology Consult (text) - Consultation Consultation Note: Consult Specialty:: cardio - History of Present Illness Chief Complaint: presyncope History of Present Illness: 79 M here with presyncope. He was walking, taking out the trash and felt very dizzy, lightheaded. put the trash down, had to stop but dizziness continued. did not lose consciousness. happens a lot but more mild whenever he exerts himself. denies syncope. similar severe symptoms in summer of 2018. Has a history of bradycardia, sees Dr. Gómez for cardio. not on aditya blocking agents. PMH: HTN HLD CAD (s/p stents) COPD BPH hypothyroidism afib - Past Medical History Cardio/Vascular: Yes: CAD, HTN, Hyperlipdemia Pulmonary: Yes: Sleep Apnea Gastrointestinal: Yes: GERD Renal/: Yes: BPH Endocrine: Yes: Hypothyroidism - Past Surgical History Past Surgical History: Yes: Stent - Alcohol/Substance Use Hx Alcohol Use: Yes (SOCIAL) History of Substance Use: reports: None - Smoking History Smoking history: Former smoker Have you smoked in the past 12 months: No If you are a former smoker, when did you quit?: 40 YRS - Social History ADL: Independent History of Recent Travel: Yes Home Medications - Allergies Allergies/Adverse Reactions: Allergies Allergy/AdvReac Type Severity Reaction Status Date / Time No Known Drug Allergies Allergy Verified 11/25/19 12:55 Home Medications Medication Instructions Recorded Ascorbic Acid [Vitamin C] 500 mg PO DAILY 12/25/12 Mag Carb/Aluminum Hydrox/Algin 30 ml PO PRN PRN #0 oral.susp 05/03/16 [Gaviscon Liquid] Multivit-Min/FA/Lycopen/Lutein 1 each PO DAILY 10/24/16 [Centrum Silver Men Tablet] Acetaminophen [Tylenol .Regular 650 mg PO Q6H PRN tablet 04/25/18 Strength -] Apixaban [Eliquis -] 5 mg PO BID #60 tablet 04/25/18 Budesonide/Formeterol Fumarate 2 puff IH BID inhaler 04/25/18 [SYMBICORT 160/4.5mcg -] Albuterol Sulfate Inhaler - 2 inhaler IN PRN 11/25/19 [Ventolin HFA Inhaler -] Atorvastatin Ca [Lipitor] 20 mg PO HS 11/25/19 Levothyroxine [Synthroid -] 150 mcg PO DAILY 11/25/19 Review of Systems - Review of Systems Constitutional: denies: Chills, Fever Eyes: denies: Eye Pain HENT: denies: Nasal Congestion Neck: denies: Stiffness Cardiovascular: denies: Palpitations Respiratory: denies: Orthopnea, PND Gastrointestinal: denies: Diarrhea, Rectal Bleeding Genitourinary: denies: Burning, Hematuria Musculoskeletal: denies: Muscle Pain Integumentary: denies: Rash Neurological: reports: Syncope. denies: Numbness, Seizure Endocrine: denies: Excessive Sweating Hematology/Lymphatic: denies: Excessive Bleeding Vital Signs Period Temp Pulse Resp BP Sys/Sheldon Pulse Ox Last 24 Hr 97.5 F-97.9 F 42-54 15-20 100-150/46-90 94-99 Constitutional: Yes: No Distress, Obese Eyes: No: Sclera Icterus HENT: No: Nasal Congestion Neck: No: Decreased ROM Respiratory: Yes: CTA Bilaterally. No: Accessory Muscle Use, Rales, Wheezes Gastrointestinal: Yes: Normal Bowel Sounds. No: Distention, Hepatomegaly, Palpable Mass, Tenderness Cardiovascular: Yes: Pulse Irregular JVD: No Carotid Bruit: No PMI: Non-Displaced Heart Sounds: Yes: S1, S2. No: Gallop Murmur: Yes: Systolic Murmur (soft heart sounds. syst murmur rusb). No: Diastolic Murmur Musculoskeletal: Yes: Other (No kyphosis) Extremities: No: Cool, Cyanosis Edema: No Integumentary: No: Jaundice Neurological: Yes: Alert, Oriented (x3) Psychiatric: No: Agitated Assessment/Plan EKG: afib, slow conduction, no ischemic changes tele: afib rate 30s-40s, pauses 3-3.5 seconds presyncope, bradycardia - slow afib noted on monitor - prior hx hypothyroidism - nl TSH here, not on aditya blocking agents - pauses on tele here with slow afib - d/w EP Dr. Mills at [facility] [place] - transfer for EP evaluation and possible PPM afib: -cont tele - cont eliquis - no aditya blocking agents for bradycardia h/o CAD, prior stent: - cont statin, eliquis COPD - manage per primary HLD - cont statin
--- NOTE | 2019-11-26 14:08 | EKG ---
Test Reason : Blood Pressure : / mmHG Vent. Rate : 038 BPM Atrial Rate : 300 BPM P-R Int : 000 ms QRS Dur : 106 ms QT Int : 510 ms P-R-T Axes : 000 060 043 degrees QTc Int : 405 ms ATRIAL FIBRILLATION WITH SLOW VENTRICULAR RESPONSE ABNORMAL ECG WHEN COMPARED WITH ECG OF 25-NOV-2019 14:09, NO SIGNIFICANT CHANGE WAS FOUND Confirmed by Anibal Hernandez MD ([id number]) on 11/26/2019 2:08:41 PM Referred By: Ritesh HUANG Confirmed By:Anibal Hernandez MD
--- NOTE | 2019-11-26 14:30 | CONS ---
DATE OF CONSULTATION: 11/26/2019 REFERRING PHYSICIAN: Rachael Gan MD HISTORY: The patient is an 79-year-old male with past medical history of COPD, ASHD status post stents, atrial fibrillation on Eliquis, with history of slow conduction, apparently sent from Dr. Gan's office after several episodes of post-exertional lightheadedness and near-syncope. Patient was found in Dr. Gan's office to have bradycardia with atrial fibrillation in the office, at which time he was referred for admission. Patient denied any chest pain, nausea, vomiting, or diaphoresis. Denied any hemoptysis. Patient has history of smoking, quit years ago. He also has a history of obstructive sleep apnea but is not compliant with his CPAP. PAST MEDICAL HISTORY: Again includes COPD, obstructive sleep apnea on a CPAP, ASHD status post stents, atrial fibrillation, hypothyroidism, GERD, history of right upper lobe nodule. MEDICATIONS: Current medications include Symbicort 160/4.5, Tylenol, Eliquis, DuoNeb, Lipitor, and Synthroid. PHYSICAL EXAMINATION: General: The patient is an elderly male, awake, alert, currently in no acute distress. Vital Signs: He is afebrile. Heart rate is 50. Blood pressure is 122/90. Respiratory rate is 18. O2 saturation is 94% on 2 L nasal cannula. HEENT: Exam is normocephalic, atraumatic. Neck: Supple. Heart: Bradycardic, irregularly irregular. S1, S2. Chest: Clear. Abdomen: Soft. Bowel sounds are positive. Extremities: No cyanosis or edema. IMAGING: On chest x-ray, mild cardiomegaly, mild congestion. LABORATORY: WBCs 4.5, hemoglobin 11.9, hematocrit 36.7, a platelet count of 207,000. INR is 1.38. BUN 14, creatinine 0.9. COVID is pending. IMPRESSION: 1. Dyspnea, near-syncope. 2. Symptomatic bradycardia. 3. Orthostatic hypotension. 4. Arteriosclerotic heart disease status post stents. 5. Chronic obstructive pulmonary disease. 6. Obstructive sleep apnea, not compliant with CPAP. 7. Gastroesophageal reflux disease. 8. Hypothyroidism. 9. Atrial fibrillation. 10. Right upper lobe nodule. PLAN: Telemetry monitoring, supplemental O2, cardiac workup. Continue anticoagulation, inhaled bronchodilators. MARIANA HENRY M.D. PINKY/[id number]
[2019-11-26 21:10] VITALS: BP 144/77; PULSE 59; TEMP 98.2
[2019-11-26] MEDS: ATORVASTATIN CA 20 MG TABLET (FP) PO SCH (21:56)
== END 2019-11-26 22:34 | disposition short-term general hospital (02) | DRG 310 ==
LOC: JER 12:48 → JERBED 17:45 → J4W 11-26 02:24
PROVIDERS: ADMIT Family Medicine; ATTEND Family Medicine
DX: I48.91 Unspecified atrial fibrillation (principal); R00.1 Bradycardia, unspecified; I25.10 Atherosclerotic heart disease of native coronary artery without angina pectoris; J44.9 Chronic obstructive pulmonary disease, unspecified; E78.5 Hyperlipidemia, unspecified; R55 Syncope and collapse; I10 Essential (primary) hypertension; N40.0 Benign prostatic hyperplasia without lower urinary tract symptoms; E03.9 Hypothyroidism, unspecified; Z95.5 Presence of coronary angioplasty implant and graft; E66.9 Obesity, unspecified; Z68.28 Body mass index [BMI] 28.0-28.9, adult; I95.1 Orthostatic hypotension; G47.33 Obstructive sleep apnea (adult) (pediatric); K21.9 Gastro-esophageal reflux disease without esophagitis; R91.1 Solitary pulmonary nodule
CPT/HCPCS: 36415; 71045-TC-FY; 80053; 82550; 83735; 83880; 84439; 84443; 84484; 85025; 85610; 85730; 93005; 93010; 97116-GP; 97161-GP; 99285-25; U0003

== ENCOUNTER 2020-06-05 12:21 | Inpatient (IN) | payer OTHER ==
[2020-06-05 14:33] LABS: BASO % 0.2 % (0-2.0); EOS % 5.1 % (0-4.5); HEMATOCRIT 36.7 % (35.4-49); HEMOGLOBIN 12.1 GM/dL (11.7-16.9); LYMPH % 19.4 % (8-40); MCH 30.3 pg (25.7-33.7); MONO % 10.1 % (3.8-10.2); NEUT % 65.2 % (42.8-82.8); PLATELET COUNT 202 K/MM3 (134-434); RBC 3.99 M/mm3 (4.00-5.60); RDW 15.1 % (11.9-15.9); WHITE BLOOD COUNT 4.5 K/mm3 (4.0-10.0)
[2020-06-05] MEDS ORDERED: SODIUM CHLORIDE 0.9% 500 ML INFUS.BAG IV ONE (14:35)
[2020-06-05 14:51] LABS: CALCIUM 8.4 mg/dL (8.5-10.1)
[2020-06-05 14:52] LABS: ALBUMIN 3.6 g/dl (3.4-5.0); BLOOD UREA NITROGEN 19.9 mg/dL (7-18); INR 1.74 (0.83-1.09); PROTHROMBIN TIME (PATIENT) 20.7 SEC (9.7-13.0)
[2020-06-05 14:54] LABS: ACTIVATED PTT 39.5 SECONDS (25.2-36.5); BILIRUBIN,DIRECT 0.3 mg/dL (0.0-0.2)
[2020-06-05 14:55] LABS: CREATININE 0.9 mg/dL (0.55-1.3)
[2020-06-05 14:56] LABS: BILIRUBIN,TOTAL 0.6 mg/dL (0.2-1); TOT PROT 6.9 g/dl (6.4-8.2)
[2020-06-05 15:00] LABS: N-TERMINAL BNP 6749.4 pg/ml (5-450)
[2020-06-05] MEDS ORDERED: ASPIRIN 81 MG CHEWABLE TABLETS PO ONE (15:24)
[2020-06-05] MEDS ORDERED: ASPIRIN 81 MG CHEWABLE TABLETS ONE (15:34)
[2020-06-05] MEDS ORDERED: FUROSEMIDE 40 MG/4 ML INJECTABLE VIAL IVPUSH ONE (15:38)
[2020-06-05] MEDS ORDERED: ACETAMINOPHEN 325 MG TABLET (FP) PO PRN (15:47)
[2020-06-05] MEDS ORDERED: ALBUTEROL SO4 HFA INHALER IH PRN (15:47)
[2020-06-05] MEDS: ASPIRIN COATED 81 MG TABLET.EC PO SCH (15:55)
[2020-06-05] MEDS ORDERED: FUROSEMIDE 40 MG/4 ML INJECTABLE VIAL ONE (16:40)
[2020-06-05 16:52] LABS: EPI CELLS 12 /uL (0-25.1); HYALINE CASTS 1 /uL (0-3.1); PH,URINE 5.5 (5.0-8.0); URINE APPEARANCE CLEAR; URINE BACTERIA 249 /uL (0-1359); URINE BILIRUBIN NEGATIVE (NEGATIVE); URINE COLOR DK YELLOW; URINE GLUCOSE (UA) NEGATIVE (NEGATIVE); URINE KETONE TRACE (NEGATIVE); URINE LEUK ESTERASE TRACE (NEGATIVE); URINE NITRITE NEGATIVE (NEGATIVE); URINE PROTEIN 1+ (NEGATIVE); URINE RBC 3 /uL (0-23.9); URINE WBC 39 /uL (0-25.8)
[2020-06-05] MEDS ORDERED: ATORVASTATIN CA 20 MG TABLET (FP) ONE (23:00)
[2020-06-05] MEDS ORDERED: METOPROLOL TARTRATE 25 MG TABLET (FP) ONE (23:01)
[2020-06-05] MEDS ORDERED: APIXABAN 5 MG TABLET ONE (23:01)
[2020-06-05] MEDS: APIXABAN 5 MG TABLET PO SCH (23:10)
[2020-06-05] MEDS: ATORVASTATIN CA 40 MG TABLET (FP) PO SCH (23:10)
[2020-06-05] MEDS: BUDESONIDE/FORMETEROL FUMARATE 160/4.5 mcg INHALER IH SCH (23:11)
[2020-06-05] MEDS: METOPROLOL TARTRATE 25 MG TABLET (FP) PO SCH (23:11)
[2020-06-06] MEDS ORDERED: LEVOTHYROXINE NA 25 MCG TABLET (FP) ONE (05:45)
[2020-06-06] MEDS: LEVOTHYROXINE NA 50 MCG TABLET (FP) PO SCH (05:52)
[2020-06-06] MEDS ORDERED: ASPIRIN COATED 81 MG TABLET.EC ONE (11:24)
[2020-06-06] MEDS ORDERED: METOPROLOL TARTRATE 25 MG TABLET (FP) ONE (11:24)
[2020-06-06] MEDS ORDERED: FUROSEMIDE 40 MG/4 ML INJECTABLE VIAL ONE (11:24)
[2020-06-06] MEDS ORDERED: APIXABAN 5 MG TABLET ONE (11:24)
[2020-06-06] MEDS: APIXABAN 5 MG TABLET PO SCH ×2 (11:48→21:44)
[2020-06-06] MEDS: FUROSEMIDE 40 MG/4 ML INJECTABLE VIAL IVPUSH SCH (11:48)
[2020-06-06] MEDS: BUDESONIDE/FORMETEROL FUMARATE 160/4.5 mcg INHALER IH SCH ×2 (11:48→22:41)
[2020-06-06] MEDS: METOPROLOL TARTRATE 25 MG TABLET (FP) PO SCH ×2 (11:48→21:45)
[2020-06-06] MEDS: ASPIRIN COATED 81 MG TABLET.EC PO SCH (11:48)
[2020-06-06 13:00] LABS: BASO % 0.2 % (0-2.0); EOS % 12.6 % (0-4.5); HEMATOCRIT 37.6 % (35.4-49); HEMOGLOBIN 12.3 GM/dL (11.7-16.9); LYMPH % 18.9 % (8-40); MCH 30.2 pg (25.7-33.7); MCHC 32.7 g/dl (32.0-35.9); MEAN CELL VOLUME 92.3 fl (80-96); MEAN PLT VOLUME 7.2 fl (7.5-11.1); MONO % 8.9 % (3.8-10.2); NEUT % 59.4 % (42.8-82.8); PLATELET COUNT 215 K/MM3 (134-434); RBC 4.07 M/mm3 (4.00-5.60); RDW 15.1 % (11.9-15.9); WHITE BLOOD COUNT 5.9 K/mm3 (4.0-10.0)
[2020-06-06 13:20] LABS: ALBUMIN 3.7 g/dl (3.4-5.0); BLOOD UREA NITROGEN 17.9 mg/dL (7-18); CALCIUM 8.5 mg/dL (8.5-10.1)
[2020-06-06 13:23] LABS: CREATININE 0.9 mg/dL (0.55-1.3)
[2020-06-06 13:25] LABS: BILIRUBIN,TOTAL 1.1 mg/dL (0.2-1)
[2020-06-06 13:29] VITALS: BMI 27.8
[2020-06-06] MEDS ORDERED: METOPROLOL TARTRATE 5 MG/5 ML VIAL IVPUSH PRN (14:00)
[2020-06-06 16:44] LABS: N-TERMINAL BNP 6545.8 pg/ml (5-450)
[2020-06-06 19:02] LABS: VENOUS BASE EXCESS -8.5 mmol/L (-2-2); VENOUS O2 SATURATION 46.7 % (70-80); VENOUS PCO2 47.9 mmHg (38-52); VENOUS PH 7.22 (7.310-7.410)
[2020-06-06] MEDS: ATORVASTATIN CA 40 MG TABLET (FP) PO SCH (21:45)
[2020-06-07] MEDS: LEVOTHYROXINE NA 50 MCG TABLET (FP) PO SCH (05:59)
[2020-06-07] MEDS: APIXABAN 5 MG TABLET PO SCH (11:10)
[2020-06-07] MEDS: METOPROLOL TARTRATE 25 MG TABLET (FP) PO SCH (11:11)
[2020-06-07] MEDS: ASPIRIN COATED 81 MG TABLET.EC PO SCH (11:12)
[2020-06-07] MEDS: BUDESONIDE/FORMETEROL FUMARATE 160/4.5 mcg INHALER IH SCH (11:12)
[2020-06-07] MEDS: FUROSEMIDE 40 MG/4 ML INJECTABLE VIAL IVPUSH SCH (11:12)
[2020-06-07 11:35] LABS: CALCIUM 8.5 mg/dL (8.5-10.1)
[2020-06-07 11:36] LABS: ALBUMIN 3.4 g/dl (3.4-5.0); BLOOD UREA NITROGEN 17.9 mg/dL (7-18)
[2020-06-07 11:39] LABS: CREATININE 1.1 mg/dL (0.55-1.3)
[2020-06-07 11:40] LABS: BILIRUBIN,TOTAL 1.2 mg/dL (0.2-1); TOT PROT 6.5 g/dl (6.4-8.2)
[2020-06-07 15:55] VITALS: BP 104/61; PULSE 60; TEMP 98
[2020-06-08] MEDS ORDERED: FUROSEMIDE 40 MG TABLET (FP) PO SCH (10:00)
== END 2020-06-07 16:39 | disposition home or self-care (01) | DRG 292 ==
LOC: JER 12:21 → JERBED 14:47 → J4W 06-06 12:41
PROVIDERS: ADMIT Family Medicine; ATTEND Family Medicine
DX: I11.0 Hypertensive heart disease with heart failure (principal); I24.8 Other forms of acute ischemic heart disease; I50.33 Acute on chronic diastolic (congestive) heart failure; I25.10 Atherosclerotic heart disease of native coronary artery without angina pectoris; N40.0 Benign prostatic hyperplasia without lower urinary tract symptoms; E78.5 Hyperlipidemia, unspecified; Z86.73 Personal history of transient ischemic attack (TIA), and cerebral infarction without residual deficits; J43.9 Emphysema, unspecified; E03.9 Hypothyroidism, unspecified; I48.91 Unspecified atrial fibrillation; Z95.0 Presence of cardiac pacemaker; Z87.891 Personal history of nicotine dependence; E66.9 Obesity, unspecified; Z79.01 Long term (current) use of anticoagulants; Z68.29 Body mass index [BMI] 29.0-29.9, adult
CPT/HCPCS: 36415; 71046-TC-FY; 80053; 80061; 81003; 82248; 82550; 82728; 82803; 83615; 83721; 83880; 84436; 84443; 84484; 85025; 85610; 85730; 86140; 87086; 87804; 93005; 93010; 93306-TC; 99285-25; C9803; U0003

== ENCOUNTER 2020-10-13 10:25 | Observation (INO) | payer OTHER ==
[2020-10-13 10:32] VITALS: BMI 28.5
[2020-10-13 12:03] LABS: BASO % 0.9 % (0-2.0); EOS % 14.8 % (0-4.5); HEMATOCRIT 33.8 % (35.4-49); HEMOGLOBIN 11.4 GM/dL (11.7-16.9); LYMPH % 11.2 % (8-40); MCH 29.6 pg (25.7-33.7); MCHC 33.6 g/dl (32.0-35.9); MEAN PLT VOLUME 6.4 fl (7.5-11.1); NEUT % 59.1 % (42.8-82.8); PLATELET COUNT 205 K/MM3 (134-434); RBC 3.84 M/mm3 (4.00-5.60); RDW 16.3 % (11.9-15.9)
[2020-10-13 12:34] LABS: CALCIUM 8.6 mg/dL (8.5-10.1)
[2020-10-13 12:35] LABS: BLOOD UREA NITROGEN 12.3 mg/dL (7-18)
[2020-10-13 12:38] LABS: ALBUMIN 3.4 g/dl (3.4-5.0); CREATININE 0.8 mg/dL (0.55-1.3)
[2020-10-13 12:40] LABS: TOT PROT 7.1 g/dl (6.4-8.2)
[2020-10-13 12:43] LABS: N-TERMINAL BNP 4117.8 pg/ml (5-450)
[2020-10-13] MEDS ORDERED: ACETAMINOPHEN 325 MG TABLET (FP) PO PRN (15:43)
[2020-10-13] MEDS ORDERED: ATORVASTATIN CA 20 MG TABLET (FP) PO SCH (22:00)
[2020-10-13] MEDS ORDERED: ATORVASTATIN CA 20 MG TABLET (FP) ONE (22:38)
[2020-10-13] MEDS ORDERED: ALBUTEROL SO4 2.5/IPRATROPIUM 0.5 INH SOL 3 ML VIAL.NEB. NEB ONE (22:38)
[2020-10-13] MEDS ORDERED: APIXABAN 5 MG TABLET ONE (22:39)
[2020-10-13] MEDS ORDERED: METOPROLOL TARTRATE 25 MG TABLET (FP) ONE (22:39)
[2020-10-13] MEDS: APIXABAN 5 MG TABLET PO SCH (22:46)
[2020-10-13] MEDS: ALBUTEROL SO4 2.5/IPRATROPIUM 0.5 INH SOL 3 ML VIAL.NEB. NEB SCH (22:46)
[2020-10-13] MEDS: METOPROLOL TARTRATE 25 MG TABLET (FP) PO SCH (22:46)
[2020-10-14 04:34] VITALS: TEMP 98.4
[2020-10-14 06:39] LABS: BASO % 0.4 % (0-2.0); EOS % 20.5 % (0-4.5); LYMPH % 11.8 % (8-40); MCH 29.6 pg (25.7-33.7); MCHC 33.2 g/dl (32.0-35.9); MEAN PLT VOLUME 6.4 fl (7.5-11.1); MONO % 11.6 % (3.8-10.2); NEUT % 55.7 % (42.8-82.8); PLATELET COUNT 203 K/MM3 (134-434); RBC 3.71 M/mm3 (4.00-5.60); RDW 16.3 % (11.9-15.9); WHITE BLOOD COUNT 4.3 K/mm3 (4.0-10.0)
[2020-10-14] MEDS ORDERED: LEVOTHYROXINE NA 150 MCG TABLET PO SCH (07:00)
[2020-10-14 07:07] LABS: ALBUMIN 3.3 g/dl (3.4-5.0); BLOOD UREA NITROGEN 12.8 mg/dL (7-18); CALCIUM 8.1 mg/dL (8.5-10.1)
[2020-10-14 07:08] LABS: MAGNESIUM 1.9 mg/dL (1.8-2.4)
[2020-10-14 07:10] LABS: CREATININE 0.8 mg/dL (0.55-1.3)
[2020-10-14 07:12] LABS: BILIRUBIN,TOTAL 1.1 mg/dL (0.2-1); TOT PROT 6.8 g/dl (6.4-8.2)
[2020-10-14 08:25] LABS: ANISOCYTOSIS 1+; MACROCYTOSIS 0; PLATELET ESTIMATE NORMAL
[2020-10-14] MEDS: ALBUTEROL SO4 2.5/IPRATROPIUM 0.5 INH SOL 3 ML VIAL.NEB. NEB SCH ×2 (10:15→12:28)
[2020-10-14] MEDS ORDERED: METOPROLOL TARTRATE 25 MG TABLET (FP) ONE (10:16)
[2020-10-14] MEDS ORDERED: APIXABAN 5 MG TABLET ONE (10:17)
[2020-10-14] MEDS: METOPROLOL TARTRATE 25 MG TABLET (FP) PO SCH (10:24)
[2020-10-14] MEDS: APIXABAN 5 MG TABLET PO SCH (10:24)
[2020-10-14 16:39] VITALS: BP 117/50; PULSE 61
== END 2020-10-14 16:30 | disposition home or self-care (01) ==
LOC: JER 10:25 → JERBED 14:48 → UNDOADMOB 14:48 → OBSVTOIN 15:44 → INTOOBSV 15:44 → JERBED 10-14 11:19
PROVIDERS: ADMIT Family Medicine; ATTEND Family Medicine
DX: I48.91 Unspecified atrial fibrillation (principal); I25.111 Atherosclerotic heart disease of native coronary artery with angina pectoris with documented spasm; K21.9 Gastro-esophageal reflux disease without esophagitis; E03.9 Hypothyroidism, unspecified; E78.5 Hyperlipidemia, unspecified; I50.9 Heart failure, unspecified; J43.9 Emphysema, unspecified; Z95.0 Presence of cardiac pacemaker; R05 Cough; R09.3 Abnormal sputum; W18.39XA Other fall on same level, initial encounter; Y93.89 Activity, other specified; Y92.89 Other specified places as the place of occurrence of the external cause; Z87.891 Personal history of nicotine dependence
CPT/HCPCS: 36415; 70450-TC; 71250-TC; 72125-TC; 80053; 80061; 82550; 83721; 83735; 83880; 84443; 84484; 85025; 93005; 93010; 94761; 99285-25; C9803; G0378; U0003; U0005

== ENCOUNTER 2020-10-28 09:19 | Inpatient (IN) | payer OTHER ==
[2020-10-28 10:20] LABS: BASO % 0.6 % (0-2.0); EOS % 10.8 % (0-4.5); HEMATOCRIT 33.8 % (35.4-49); HEMOGLOBIN 11.1 GM/dL (11.7-16.9); LYMPH % 9.2 % (8-40); MCH 29.2 pg (25.7-33.7); MCHC 32.9 g/dl (32.0-35.9); MEAN CELL VOLUME 88.6 fl (80-96); MEAN PLT VOLUME 6.8 fl (7.5-11.1); MONO % 11.1 % (3.8-10.2); NEUT % 68.3 % (42.8-82.8); PLATELET COUNT 205 K/MM3 (134-434); RBC 3.82 M/mm3 (4.00-5.60); RDW 16.6 % (11.9-15.9); WHITE BLOOD COUNT 3.2 K/mm3 (4.0-10.0)
[2020-10-28 10:28] LABS: INR 1.84 (0.83-1.09); PROTHROMBIN TIME (PATIENT) 22.2 SEC (9.7-13.0)
[2020-10-28 10:30] LABS: ACTIVATED PTT 34.2 SECONDS (25.2-36.5)
[2020-10-28 10:43] LABS: CHLORIDE 105 mmol/L (98-107); SODIUM 138 mmol/L (136-145)
[2020-10-28 10:46] LABS: CALCIUM 9.1 mg/dL (8.5-10.1)
[2020-10-28 10:47] LABS: ALBUMIN 3.4 g/dl (3.4-5.0); ANION GAP 5 MMOL/L (8-16); BLOOD UREA NITROGEN 19.4 mg/dL (7-18); CO2 28 mmol/L (21-32); GLUCOSE,RANDOM 112 mg/dL (74-106)
[2020-10-28 10:49] LABS: CREATININE 0.8 mg/dL (0.55-1.3); SGOT/AST 41 U/L (15-37); SGPT/ALT 28 U/L (13-61)
[2020-10-28 10:51] LABS: BILIRUBIN,TOTAL 1.1 mg/dL (0.2-1)
[2020-10-28 10:53] LABS: ALK PHOS 149 U/L (45-117)
[2020-10-28 11:32] LABS: PH,URINE 6.5 (5.0-8.0); URINE APPEARANCE CLEAR; URINE BILIRUBIN NEGATIVE (NEGATIVE); URINE COLOR YELLOW; URINE GLUCOSE (UA) NEGATIVE (NEGATIVE); URINE KETONE NEGATIVE (NEGATIVE); URINE LEUK ESTERASE NEGATIVE (NEGATIVE); URINE NITRITE NEGATIVE (NEGATIVE); URINE PROTEIN NEGATIVE (NEGATIVE)
[2020-10-28] MEDS ORDERED: VANCOMYCIN 1 GM in D5W (PRE-DOCKED) 1,000 MG/250 ML IVPB ONE (12:51)
[2020-10-28] MEDS ORDERED: PIPERACILLIN/TAZOB 3.375 GM 3.375 GM in DEXTROSE 5%-WATER - 50 ML IVPB ONE (12:51)
[2020-10-28] MEDS ORDERED: VANCOMYCIN 1 GRAM (PRE-DOCKED) 1,000 MG/250 ML BAG IVPB ONE (13:23)
[2020-10-28] MEDS ORDERED: PIPERACILLIN/TAZOB 3.375 GM 3.375 GM/50 ML BAG IVPB ONE (13:23)
[2020-10-28] MEDS ORDERED: ACETAMINOPHEN 1000 MG/100 ML VIAL (NON FORMULARY) IVPB ONE (17:25)
[2020-10-28] MEDS ORDERED: ACETAMINOPHEN INJECTION 100 ML IVPB ONE (17:28)
[2020-10-28] MEDS: BUDESONIDE/FORMETEROL FUMARATE 160/4.5 mcg INHALER IH SCH (22:24)
[2020-10-28] MEDS: APIXABAN 5 MG TABLET PO SCH (22:24)
[2020-10-29 01:12] VITALS: BMI 27.9
[2020-10-29] MEDS: LEVOTHYROXINE NA 150 MCG TABLET PO SCH (06:08)
[2020-10-29] MEDS ORDERED: ACETAMINOPHEN 325 MG TABLET (FP) PO ONE ×2 (06:45→21:35)
[2020-10-29 07:25] LABS: BASO % 0.5 % (0-2.0); EOS % 7.1 % (0-4.5); HEMATOCRIT 32.6 % (35.4-49); HEMOGLOBIN 10.8 GM/dL (11.7-16.9); LYMPH % 7.3 % (8-40); MCH 29.6 pg (25.7-33.7); MCHC 33.1 g/dl (32.0-35.9); MEAN CELL VOLUME 89.5 fl (80-96); MEAN PLT VOLUME 7.3 fl (7.5-11.1); MONO % 11.9 % (3.8-10.2); NEUT % 73.2 % (42.8-82.8); PLATELET COUNT 187 K/MM3 (134-434); RBC 3.64 M/mm3 (4.00-5.60); RDW 16.7 % (11.9-15.9)
[2020-10-29 07:57] LABS: BLOOD UREA NITROGEN 17.8 mg/dL (7-18)
[2020-10-29 07:59] LABS: CREATININE 0.9 mg/dL (0.55-1.3)
[2020-10-29] MEDS: APIXABAN 5 MG TABLET PO SCH ×2 (09:16→21:13)
[2020-10-29] MEDS: BUDESONIDE/FORMETEROL FUMARATE 160/4.5 mcg INHALER IH SCH ×2 (09:16→21:14)
[2020-10-29] MEDS ORDERED: FUROSEMIDE 40 MG TABLET (FP) PO SCH (10:00)
[2020-10-29] MEDS ORDERED: ALBUTEROL SO4 2.5/IPRATROPIUM 0.5 INH SOL 3 ML VIAL.NEB. NEB PRN (12:13)
[2020-10-29] MEDS: AMPICILLIN NA/SULBACTAM NA 3 GM in SODIUM CHLORIDE 100 ML IVPB SCH ×2 (16:33→19:20)
[2020-10-29] MEDS: ATORVASTATIN CA 20 MG TABLET (FP) PO SCH (21:14)
[2020-10-30] MEDS: AMPICILLIN NA/SULBACTAM NA 3 GM in SODIUM CHLORIDE 100 ML IVPB SCH ×3 (01:27→17:14)
[2020-10-30] MEDS: LEVOTHYROXINE NA 150 MCG TABLET PO SCH (06:21)
[2020-10-30] MEDS: BUDESONIDE/FORMETEROL FUMARATE 160/4.5 mcg INHALER IH SCH ×2 (09:35→21:59)
[2020-10-30] MEDS: APIXABAN 5 MG TABLET PO SCH ×2 (09:35→21:59)
[2020-10-30] MEDS: ATORVASTATIN CA 20 MG TABLET (FP) PO SCH (21:59)
[2020-10-31] MEDS ORDERED: AMPICILLIN NA/SULBACTAM NA 3 GM VIAL ONE ×3 (01:05→17:17)
[2020-10-31] MEDS ORDERED: SODIUM CHLORIDE 100 ML IVPB ONE ×3 (01:06→17:17)
[2020-10-31] MEDS: AMPICILLIN NA/SULBACTAM NA 3 GM in SODIUM CHLORIDE 100 ML IVPB SCH ×3 (01:36→17:28)
[2020-10-31] MEDS: LEVOTHYROXINE NA 150 MCG TABLET PO SCH (06:10)
[2020-10-31] MEDS: BUDESONIDE/FORMETEROL FUMARATE 160/4.5 mcg INHALER IH SCH ×2 (09:54→21:25)
[2020-10-31] MEDS: APIXABAN 5 MG TABLET PO SCH ×2 (09:54→21:25)
[2020-10-31] MEDS: ATORVASTATIN CA 20 MG TABLET (FP) PO SCH (21:25)
[2020-11-01] MEDS ORDERED: AMPICILLIN NA/SULBACTAM NA 3 GM VIAL ONE ×3 (01:01→16:56)
[2020-11-01] MEDS ORDERED: SODIUM CHLORIDE 100 ML IVPB ONE ×3 (01:01→16:56)
[2020-11-01] MEDS: AMPICILLIN NA/SULBACTAM NA 3 GM in SODIUM CHLORIDE 100 ML IVPB SCH ×3 (01:10→17:01)
[2020-11-01] MEDS: LEVOTHYROXINE NA 150 MCG TABLET PO SCH (06:14)
[2020-11-01 07:45] LABS: BASO % 0.6 % (0-2.0); EOS % 22.2 % (0-4.5); HEMATOCRIT 30.5 % (35.4-49); HEMOGLOBIN 10.1 GM/dL (11.7-16.9); LYMPH % 9.5 % (8-40); MCH 29.4 pg (25.7-33.7); MCHC 33.2 g/dl (32.0-35.9); MEAN CELL VOLUME 88.6 fl (80-96); MONO % 9.6 % (3.8-10.2); NEUT % 58.1 % (42.8-82.8); PLATELET COUNT 191 K/MM3 (134-434); RBC 3.44 M/mm3 (4.00-5.60); RDW 16.6 % (11.9-15.9); WHITE BLOOD COUNT 3.9 K/mm3 (4.0-10.0)
[2020-11-01 07:56] LABS: ALBUMIN 2.8 g/dl (3.4-5.0); BLOOD UREA NITROGEN 13.4 mg/dL (7-18)
[2020-11-01 07:57] LABS: CALCIUM 8.7 mg/dL (8.5-10.1)
[2020-11-01 07:59] LABS: CREATININE 0.6 mg/dL (0.55-1.3)
[2020-11-01 08:00] LABS: BILIRUBIN,TOTAL 0.8 mg/dL (0.2-1); TOT PROT 6.1 g/dl (6.4-8.2)
[2020-11-01] MEDS: APIXABAN 5 MG TABLET PO SCH ×2 (09:00→21:22)
[2020-11-01] MEDS: BUDESONIDE/FORMETEROL FUMARATE 160/4.5 mcg INHALER IH SCH ×2 (09:02→21:21)
[2020-11-01 10:15] LABS: ANISOCYTOSIS 0; MACROCYTOSIS 0; OVALOCYTE 1+; PLATELET ESTIMATE NORMAL
[2020-11-01] MEDS: FLUDROCORTISONE ACETATE 0.1 MG TABLET (FP) PO SCH (10:40)
[2020-11-01] MEDS: ATORVASTATIN CA 20 MG TABLET (FP) PO SCH (21:22)
[2020-11-02] MEDS ORDERED: AMPICILLIN NA/SULBACTAM NA 3 GM VIAL ONE (00:54)
[2020-11-02] MEDS ORDERED: SODIUM CHLORIDE 100 ML IVPB ONE (00:55)
[2020-11-02] MEDS: AMPICILLIN NA/SULBACTAM NA 3 GM in SODIUM CHLORIDE 100 ML IVPB SCH (01:38)
[2020-11-02] MEDS: LEVOTHYROXINE NA 150 MCG TABLET PO SCH (06:03)
[2020-11-02] MEDS: FLUDROCORTISONE ACETATE 0.1 MG TABLET (FP) PO SCH (11:24)
[2020-11-02] MEDS: APIXABAN 5 MG TABLET PO SCH ×2 (11:24→21:09)
[2020-11-02] MEDS: BUDESONIDE/FORMETEROL FUMARATE 160/4.5 mcg INHALER IH SCH ×2 (11:25→21:09)
[2020-11-02] MEDS: AMOX TR/POT CLAV 875MG/125MG TABLETS (FP) PO SCH (18:01)
[2020-11-02] MEDS: ATORVASTATIN CA 20 MG TABLET (FP) PO SCH (21:09)
[2020-11-03 05:30] VITALS: TEMP 97.5
[2020-11-03] MEDS: LEVOTHYROXINE NA 150 MCG TABLET PO SCH (06:25)
[2020-11-03 07:24] LABS: BASO % 0.7 % (0-2.0); EOS % 18.9 % (0-4.5); HEMATOCRIT 29.3 % (35.4-49); HEMOGLOBIN 9.8 GM/dL (11.7-16.9); LYMPH % 11.6 % (8-40); MCH 29.4 pg (25.7-33.7); MCHC 33.4 g/dl (32.0-35.9); MEAN CELL VOLUME 88.3 fl (80-96); MEAN PLT VOLUME 6.9 fl (7.5-11.1); MONO % 11.1 % (3.8-10.2); NEUT % 57.7 % (42.8-82.8); PLATELET COUNT 189 K/MM3 (134-434); RBC 3.32 M/mm3 (4.00-5.60); RDW 16.8 % (11.9-15.9); WHITE BLOOD COUNT 3.6 K/mm3 (4.0-10.0)
[2020-11-03 08:30] VITALS: BP 122/60; PULSE 61
[2020-11-03] MEDS: AMOX TR/POT CLAV 875MG/125MG TABLETS (FP) PO SCH (09:24)
[2020-11-03] MEDS: FLUDROCORTISONE ACETATE 0.1 MG TABLET (FP) PO SCH (09:24)
[2020-11-03] MEDS: APIXABAN 5 MG TABLET PO SCH (09:24)
[2020-11-03] MEDS: BUDESONIDE/FORMETEROL FUMARATE 160/4.5 mcg INHALER IH SCH (09:24)
== END 2020-11-03 10:35 | disposition home or self-care (01) | DRG 194 ==
LOC: JER 09:19 → JERBED 16:24 → J4W 20:46
PROVIDERS: ADMIT Family Medicine; ATTEND Family Medicine
DX: J18.9 Pneumonia, unspecified organism (principal); I50.32 Chronic diastolic (congestive) heart failure; R04.2 Hemoptysis; R55 Syncope and collapse; I11.0 Hypertensive heart disease with heart failure; J43.9 Emphysema, unspecified; I48.91 Unspecified atrial fibrillation; D72.10 Eosinophilia, unspecified; I95.1 Orthostatic hypotension; D72.819 Decreased white blood cell count, unspecified; E78.5 Hyperlipidemia, unspecified; I25.10 Atherosclerotic heart disease of native coronary artery without angina pectoris; Z95.5 Presence of coronary angioplasty implant and graft; N40.0 Benign prostatic hyperplasia without lower urinary tract symptoms; E03.9 Hypothyroidism, unspecified; G47.33 Obstructive sleep apnea (adult) (pediatric); E66.9 Obesity, unspecified; Z68.27 Body mass index [BMI] 27.0-27.9, adult; R91.1 Solitary pulmonary nodule; K21.9 Gastro-esophageal reflux disease without esophagitis
CPT/HCPCS: 36415; 70450-TC; 71045-TC-FY; 71046-TC-FY; 71101-TC-RT-FY; 71250-TC; 72125-TC; 80048; 80053; 80061; 81003; 82550; 82962; 83036; 83721; 83735; 84443; 84484; 85025; 85610; 85730; 86682; 86850; 86900; 86901; 87040; 87070; 87205; 87899; 93005; 93010; 93880-TC; 99285-25; C9803; J0131; U0003; U0005